=== PATIENT | female | born 1970 | race Caucasian/White ===

== ENCOUNTER 2016-11-19 15:50 | Emergency (ER) | payer MEDICAID ==
[~2016-11-19] VITALS: Ht 162.6 cm; Wt 80.0 kg
[~2016-11-19 15:50] MED LIST: ALPR-138 PO; AMBI5TAB PO; AMOX500T PO; DICL50 PO; DIFL150T PO; OXYC-360 PO; PRED10 PO
[2016-11-19 15:55] VITALS: BP 97/82; PULSE 146; RESP 20; TEMP 99.1; O2SAT 100
[2016-11-19] MEDS ORDERED: KETOROLAC TROMETHAMINE 30 MG/ML (IVP) VIAL IV PUSH ONE (16:00)
[2016-11-19] MEDS ORDERED: LORazepam 2 MG/ML VIAL IV PUSH ONE (16:00)
[2016-11-19] MEDS ORDERED: DICL50TA PO (16:03)
[2016-11-19] MEDS ORDERED: XANA1TAB2 PO (16:03)
[2016-11-19] MEDS ORDERED: PERC5TAB12 PO (16:03)
[2016-11-19] MEDS ORDERED: AMBI5TAB PO (16:03)
[2016-11-19 16:15] VITALS: BP 112/90; PULSE 100; RESP 20; O2SAT 100
[2016-11-19] MEDS ORDERED: SODIUM CHLOR 0.9% 1000 ML INJ 1,000 ML IV ONE (16:15)
[2016-11-19 16:23] LABS: BASOPHIL # 0.1 TH/MM3 (0-0.2); BASOPHIL % 0.4 % (0.0-2.0); EOSINOPHIL # 0.3 TH/MM3 (0-0.4); EOSINOPHIL % 1.4 % (0.0-4.0); HEMATOCRIT 39.5 % (35.0-46.0); LYMPH % 21.7 % (9.0-44.0); LYMPHOCYTE # 4.7 TH/MM3 (1.0-4.8); MEAN CELL VOLUME 90.7 FL (80.0-100.0); MEAN CORPUSCULAR HEMOGLOBIN 29.6 PG (27.0-34.0); MEAN CORPUSCULAR HGB CONC 32.7 % (32.0-36.0); MONO % 2.7 % (0.0-8.0); NEUT % 73.8 % (16.0-70.0); PLATELET COUNT 555 TH/MM3 (150-450); RED BLOOD COUNT 4.35 MIL/MM3 (4.00-5.30); RED CELL DISTRIBUTION WIDTH 13.6 % (11.6-17.2); WHITE BLOOD COUNT 21.7 TH/MM3 (4.0-11.0)
[2016-11-19 16:24] LABS: HEMO FLAGS AUTO DIFF
[2016-11-19 16:31] LABS: CHLORIDE 105 MEQ/L (98-107); POTASSIUM 3.7 MEQ/L (3.5-5.1); SODIUM (NA) 137 MEQ/L (136-145)
[2016-11-19 16:35] LABS: ANION GAP 12 MEQ/L (5-15); BLOOD UREA NITROGEN 11 MG/DL (7-18)
[2016-11-19 16:38] LABS: ALT (GPT) 48 U/L (10-53); AST (GOT) 26 U/L (15-37); GLOMERULAR FILTRATION RATE 54 ML/MIN (>89)
--- NOTE | 2016-11-19 16:38 | RADRPT ---
EXAM DATE/TIME: 11/19/2016 16:26 [facility] COMPARISON: No previous studies available for comparison. INDICATIONS : Sudden onset of chest pains MEDICAL HISTORY : None. SURGICAL HISTORY : None. ENCOUNTER: Initial ACUITY: 1 day PAIN SCORE: 8/10 LOCATION: Bilateral chest FINDINGS: A single view of the chest demonstrates the lungs to be symmetrically aerated without evidence of mas s, infiltrate or effusion. The cardiomediastinal contours are unremarkable. Osseous structures are intact. CONCLUSION: No acute disease. Avni Eldridge MD on November 19, 2016 at 16:36 Board Certified Radiologist. This report was verified electronically.
[2016-11-19 16:39] LABS: TOTAL BILIRUBIN ADULT 0.4 MG/DL (0.2-1.0)
[2016-11-19 16:41] LABS: ALKALINE PHOSPHATASE 175 U/L (45-117)
[2016-11-19 16:44] LABS: SCAN/DIFF AUTO DIFF CONFIRMED
[2016-11-19 16:59] LABS: BLOOD, URINE SMALL (NEG); GLUCOSE,URINE NEG (NEG); KETONE, URINE NEG (NEG); NITRITE,URINE NEG (NEG)
[2016-11-19] MEDS ORDERED: MORPHINE SULFATE 8 MG/ML INJ IV PUSH ONE (17:00)
[2016-11-19] MEDS ORDERED: ONDANSETRON HCL 4 MG/2 ML VIAL IV PUSH ONE (17:00)
--- NOTE | 2016-11-19 17:15 | PD ---
HPI Chief Complaint: Cardiac Complaint Time Seen by Provider: 15:59 Travel History International Travel<30 days: No Contact w/Intl Traveler<30days: No Traveled to known affect area: No History of Present Illness HPI This 45-year-old female was at home when she had an onset of sternal chest pain and palpitations. Pain started fairly abruptly. The pain is aggravated by breathing and by palpation. She has a history of anxiety and takes Xanax. She taken Xanax earlier today also takes Percocet she does smoke cigarettes. She says she been coughing the last couple of days. She is not aware of any fever. It has been a nonproductive cough. PFSH Past Medical History Anxiety: Yes Diminished Hearing: No Genitourinary: Yes (UTI) Kidney Stones: Yes Musculoskeletal: Yes (CHRONIC BACK PAIN) Immunizations Current: No Tetanus Vaccination: Unknown Influenza Vaccination: No ?: Not : 3 Para: 3 Tubal Ligation: Yes Past Surgical History Section: Yes Social History Alcohol Use: No Tobacco Use: Yes (1 PPD) Substance Use: No Allergies-Medications (Allergen,Severity, Reaction): Coded Allergies: No Known Allergies (Verified , 11/19/16) Reported Meds & Prescriptions Reported Meds & Active Scripts Active Reported Ambien (Zolpidem Tartrate) 5 Mg Tab 5 Mg PO HS PRN Diclofenac Potassium 50 Mg Tab 50 Mg PO BID Percocet (Oxycodone-Acetaminophen) 5-325 mg Tab 1 Tab PO Q4H PRN Xanax (Alprazolam) 1 Mg Tab 1 Mg PO Q6H PRN Review of Systems General / Constitutional: No: Fever, Chills Eyes: No: Diploplia, Blurred Vision HENT: No: Headaches, Vertigo Cardiovascular: Positive: Chest Pain or Discomfort, Palpitations Respiratory: Positive: Cough, Shortness of Breath Gastrointestinal: No: Nausea, Vomiting Genitourinary: No: Frequency Skin: No Rash, No Itching Neurologic: No: Weakness Psychiatric: Positive: Anxiety Endocrine: No: Heat Intolerance Hematologic/Lymphatic: No: Easy Bruising Physical Exam Narrative GENERAL: Well-developed female. She appears extremely anxious on arrival. He is hyperventilating. Her heart rate varies from 150 to 180 SKIN: Focused skin assessment warm/dry. HEAD: Atraumatic. Normocephalic. EYES: Pupils equal and round. No scleral icterus. No injection or drainage. ENT: No nasal bleeding or discharge. Mucous membranes pink and moist. NECK: Trachea midline. No JVD. CARDIOVASCULAR: Rapid Regular rate and rhythm. No murmur appreciated. She is tender over the sternum RESPIRATORY: No accessory muscle use. Clear to auscultation. Breath sounds equal bilaterally. GASTROINTESTINAL: Abdomen soft, non-tender, nondistended. Hepatic and splenic margins not palpable. MUSCULOSKELETAL: No obvious deformities. No clubbing. No cyanosis. No edema. NEUROLOGICAL: Awake and alert. No obvious cranial nerve deficits. Motor grossly within normal limits. Normal speech. PSYCHIATRIC: Appropriate mood and affect; insight and judgment normal. Data Data Last Documented VS Vital Signs Date Time Temp Pulse Resp B/P Pulse Ox O2 Delivery O2 Flow Rate FiO2 11/19/16 17:18 84 18 105/58 100 Room Air 11/19/16 15:55 99.1 Orders Electrocardiogram (11/19/16 15:59) Complete Blood Count With Diff (11/19/16 15:59) Comprehensive Metabolic Panel (11/19/16 15:59) Troponin I (11/19/16 15:59) Urinalysis - C+S If Indicated (11/19/16 15:59) Magnesium (Mg) (11/19/16 15:59) Lorazepam Inj (Ativan Inj) (11/19/16 16:00) Ketorolac Inj (Toradol Inj) (11/19/16 16:00) Sodium Chlor 0.9% 1000 Ml Inj (Ns 1000 M (11/19/16 16:15) D-Dimer (11/19/16 16:14) Chest, Single Ap (11/19/16 16:14) Ondansetron Inj (Zofran Inj) (11/19/16 17:00) Morphine Inj (Morphine Inj) (11/19/16 17:00) Labs Laboratory Tests Test 11/19/16 11/19/16 16:00 16:45 White Blood Count 21.7 TH/MM3 Red Blood Count 4.35 MIL/MM3 Hemoglobin 12.9 GM/DL Hematocrit 39.5 % Mean Corpuscular Volume 90.7 FL Mean Corpuscular Hemoglobin 29.6 PG Mean Corpuscular Hemoglobin 32.7 % Concent Red Cell Distribution Width 13.6 % Platelet Count 555 TH/MM3 Mean Platelet Volume 7.9 FL Neutrophils (%) (Auto) 73.8 % Lymphocytes (%) (Auto) 21.7 % Monocytes (%) (Auto) 2.7 % Eosinophils (%) (Auto) 1.4 % Basophils (%) (Auto) 0.4 % Neutrophils # (Auto) 16.0 TH/MM3 Lymphocytes # (Auto) 4.7 TH/MM3 Monocytes # (Auto) 0.6 TH/MM3 Eosinophils # (Auto) 0.3 TH/MM3 Basophils # (Auto) 0.1 TH/MM3 CBC Comment AUTO DIFF Differential Comment AUTO DIFF CONFIRMED D-Dimer Quantitative (PE/DVT) 0.36 MG/L FEU Sodium Level 137 MEQ/L Potassium Level 3.7 MEQ/L Chloride Level 105 MEQ/L Carbon Dioxide Level 20.0 MEQ/L Anion Gap 12 MEQ/L Blood Urea Nitrogen 11 MG/DL Creatinine 1.10 MG/DL Estimat Glomerular Filtration 54 ML/MIN Rate Random Glucose 102 MG/DL Calcium Level 9.9 MG/DL Magnesium Level 2.0 MG/DL Total Bilirubin 0.4 MG/DL Aspartate Amino Transf 26 U/L (AST/SGOT) Alanine Aminotransferase 48 U/L (ALT/SGPT) Alkaline Phosphatase 175 U/L Troponin I LESS THAN 0.02 NG/ML Total Protein 8.4 GM/DL Albumin 4.2 GM/DL Urine pH 6.0 Urine Protein NEG mg/dL Urine Glucose (UA) NEG mg/dL Urine Ketones NEG mg/dL Urine Occult Blood SMALL Urine Nitrite NEG Urine Bilirubin NEG Urine Leukocyte Esterase NEG MDM Medical Decision Making Medical Screen Exam Complete: Yes Emergency Medical Condition: Yes Medical Record Reviewed: Yes Differential Diagnosis Differential includes SVT, coronary syndrome, panic disorder, Narrative Course Chest x-rays read as negative. Her white count is elevated at 21.7 and a d- dimer is normal at 0.3 and troponin is normal with Ativan and her heart rate is come down from gradually from 1 50-100. She remained quite tender sternum. Urine is negative for infection. I suspect the elevation of the white count is related to stress, possibly bronchitis. Presentation is not suspicious for coronary artery disease she is quite tender over the chest Diagnosis Primary Impression: Chest pain, atypical Additional Impression: Bronchitis Scripts Amoxicillin 500 Mg [id number] Mg PO TID #30 TAB Ref 0 Prov:Sarwat Chambers MD 11/19/16 Disposition: 01 DISCHARGE HOME Condition: Stable Sarwat Chambers MD Nov 19, 2016 17:15
[2016-11-19 17:18] VITALS: BP 105/58; PULSE 84; RESP 18; O2SAT 100
[2016-11-19 17:24] LABS: METHOD OF COLLECTION CLEAN CATCH; URINE COLOR YELLOW (YELLW/STRAW)
[2016-11-19 17:25] LABS: BACTERIA, URINE MOD /hpf; COMMENT (UR) CULTURE INDICATED; COMMENT2 (UR) MUCOUS PRESENT; CULTURE IF INDICATED CULTURE INDICATED; RBC, URINE 0-3 /hpf (0-3); SQUAMOUS EPITHELIAL CELL URINE 0-5 /hpf (0-5)
[2016-11-19] MEDS ORDERED: AMOX500T PO (17:26)
[2016-11-19] MEDS ORDERED: AMOXICILLIN (TRIHYDRATE) 500 MG CAP PO ONE (17:30)
--- NOTE | 2016-11-20 16:49 | EKG ---
Date Performed: 11/19/2016 Time Performed: 16:31:55 PTAGE: 45 years EKG: Sinus rhythm POSSIBLE LEFT ATRIAL ENLARGEMENT BORDERLINE ECG PREVIOUS TRACING : 10/24/2012 17.06 Since previous tracing, no significant change noted DOCTOR: Darrick Sullivan Interpretating Date/Time 11/20/2016 16:46:23
== END 2016-11-19 17:40 | disposition home or self-care (01) ==
LOC: PHED 15:50
DX: R07.89 Other chest pain (principal); J40 Bronchitis, not specified as acute or chronic; D72.829 Elevated white blood cell count, unspecified; R00.0 Tachycardia, unspecified; R00.2 Palpitations; R05 Cough; R94.31 Abnormal electrocardiogram [ECG] [EKG]; F17.200 Nicotine dependence, unspecified, uncomplicated; Z86.59 Personal history of other mental and behavioral disorders; Z87.448 Personal history of other diseases of urinary system; Z87.39 Personal history of other diseases of the musculoskeletal system and connective tissue
CPT/HCPCS: 71010; 80053; 81001; 83735; 84484; 85025; 85379; 87086; 93005; 96374; 96375; 99285; J1885; J2060; J2270; J2405; J7030

== ENCOUNTER 2017-06-02 15:48 | Emergency (ER) | payer MEDICAID ==
[~2017-06-02] VITALS: Ht 162.6 cm; Wt 80.6 kg
[~2017-06-02 15:48] MED LIST changes: -ALPR-138 PO; -DICL50 PO; +DICL50TA PO; -DIFL150T PO; -OXYC-360 PO; +PERC5TAB12 PO; -PRED10 PO; +XANA1TAB2 PO
[2017-06-02] MEDS ORDERED: ASPIRIN 81 MG CHEW TAB PO ONE (16:00)
[2017-06-02] MEDS ORDERED: SODIUM CHLORIDE 0.9% FLUSH 10 ML FLUSH IVF PRN (16:00)
[2017-06-02 16:06] VITALS: BP 132/83; PULSE 122; RESP 18; TEMP 98.3; O2SAT 96
[2017-06-02] MEDS ORDERED: ALPR.5 PO (16:11)
[2017-06-02 16:19] LABS: AUTOMATED NEUTROPHIL # 6.1 TH/MM3 (1.8-7.7); BASOPHIL # 0.4 TH/MM3 (0-0.2); BASOPHIL % 3.2 % (0.0-2.0); EOSINOPHIL # 0.4 TH/MM3 (0-0.4); EOSINOPHIL % 3.6 % (0.0-4.0); HEMATOCRIT 37.9 % (35.0-46.0); HEMOGLOBIN 12.3 GM/DL (11.6-15.3); LYMPHOCYTE # 3.8 TH/MM3 (1.0-4.8); MEAN CELL VOLUME 89.7 FL (80.0-100.0); MEAN CORPUSCULAR HEMOGLOBIN 29.2 PG (27.0-34.0); MEAN CORPUSCULAR HGB CONC 32.5 % (32.0-36.0); MONO % 4.7 % (0.0-8.0); MONOCYTE # 0.5 TH/MM3 (0-0.9); NEUT % 54.5 % (16.0-70.0); PLATELET COUNT 408 TH/MM3 (150-450); RED BLOOD COUNT 4.22 MIL/MM3 (4.00-5.30); RED CELL DISTRIBUTION WIDTH 12.9 % (11.6-17.2); WHITE BLOOD COUNT 11.2 TH/MM3 (4.0-11.0)
[2017-06-02 16:21] VITALS: BP 115/82; PULSE 96; RESP 18; O2SAT 98
[2017-06-02 16:27] LABS: CHLORIDE 107 MEQ/L (98-107); SODIUM (NA) 139 MEQ/L (136-145)
[2017-06-02 16:29] LABS: CALCIUM 8.7 MG/DL (8.5-10.1)
[2017-06-02 16:30] LABS: BICARBONATE 25.5 MEQ/L (21.0-32.0); BLOOD UREA NITROGEN 6 MG/DL (7-18); GLUCOSE,RANDOM 102 MG/DL (74-106); MAGNESIUM 2.3 MG/DL (1.5-2.5)
--- NOTE | 2017-06-02 16:30 | RADRPT ---
EXAM DATE/TIME: 06/02/2017 16:00 [facility] COMPARISON: CHEST SINGLE AP, November 19, 2016, 16:26. INDICATIONS : Chest pain. MEDICAL HISTORY : None. SURGICAL HISTORY : None. ENCOUNTER: Initial ACUITY: 1 week PAIN SCORE: 10/10 LOCATION: Bilateral FINDINGS: PA and lateral views of the chest demonstrate a normal-sized cardiac silhouette. There is no effusion , consolidation, or pneumothorax. The bones and soft tissues demonstrate no acute abnormality. CONCLUSION: No acute cardiopulmonary abnormality is identified. Yoni Townsend MD on June 02, 2017 at 16:27 Board Certified Radiologist. This report was verified electronically.
[2017-06-02 16:33] LABS: CREATININE 0.79 MG/DL (0.50-1.00); GLOMERULAR FILTRATION RATE 79 ML/MIN (>89)
[2017-06-02 16:35] VITALS: BP 115/82; PULSE 90; RESP 20; O2SAT 98
[2017-06-02 16:38] LABS: TROPONIN I LESS THAN 0.02 NG/ML (0.02-0.05)
[2017-06-02] MEDS ORDERED: NABU1TAB37 PO (17:20)
--- NOTE | 2017-06-02 17:20 | PD ---
HPI . Chest pain Chief Complaint: Chest Pain Time Seen by Provider: 15:53 Travel History International Travel<30 days: No Contact w/Intl Traveler<30days: No Traveled to known affect area: No History of Present Illness HPI Patient presents with a chief complaint of chest pain. Onset was a week ago. The pain is in the center of her chest. She reports nausea. Otherwise, she has no associated symptoms. She has not tried any medication for it at home. She rates her pain 10/10. PFSH Past Medical History Anxiety: Yes Diminished Hearing: No Genitourinary: Yes (UTI) Kidney Stones: Yes Musculoskeletal: Yes (CHRONIC BACK PAIN) Immunizations Current: No Influenza Vaccination: No ?: Not LMP: 05/2017 : 3 Para: 3 Tubal Ligation: Yes Past Surgical History Section: Yes Social History Alcohol Use: No Tobacco Use: Yes (1 PPD) Substance Use: No Allergies-Medications (Allergen,Severity, Reaction): Coded Allergies: No Known Allergies (Verified Adverse Reaction, Unknown, 06/02/17) Reported Meds & Prescriptions Reported Meds & Active Scripts Active Reported Xanax (Alprazolam) 0.5 Mg Tab 0.5 Mg PO Q8H PRN Ambien (Zolpidem Tartrate) 5 Mg Tab 5 Mg PO HS PRN Diclofenac Potassium 50 Mg Tab 50 Mg PO BID Percocet (Oxycodone-Acetaminophen) 5-325 mg Tab 1 Tab PO Q4H PRN Review of Systems Except as stated in HPI: all other systems reviewed are Neg General / Constitutional: No: Fever, Chills Cardiovascular: Positive: Chest Pain or Discomfort Respiratory: No: Cough Gastrointestinal: Positive: Nausea, No: Vomiting, Diarrhea Physical Exam Narrative GENERAL: Awake and alert and in no acute distress. SKIN: warm/dry. Normal color and turgor. HEAD: Normocephalic. Atraumatic. EYES: Pupils equal and round. No scleral icterus. No injection or drainage. ENT: No nasal bleeding or discharge. Mucous membranes pink and moist. NECK: Trachea midline. Full range of motion without pain.. CARDIOVASCULAR: Regular rate and rhythm. Heart sounds normal. RESPIRATORY: No accessory muscle use. Clear to auscultation. Breath sounds equal bilaterally. Positive chest wall tenderness. GASTROINTESTINAL: Abdomen soft. Nontender. Bowel sounds present. Nondistended. MUSCULOSKELETAL: No obvious deformities. NEUROLOGICAL: Awake and alert. No obvious cranial nerve deficits. Motor grossly within normal limits. Normal speech. PSYCHIATRIC: Appropriate mood and affect; insight and judgment normal. Data Data Last Documented VS Vital Signs Date Time Temp Pulse Resp B/P (MAP) Pulse Ox O2 Delivery O2 Flow Rate FiO2 06/02/17 16:35 90 98 Room Air 06/02/17 16:35 20 115/82 (93) 06/02/17 16:06 98.3 Orders Orders Electrocardiogram (06/02/17 15:54) Basic Metabolic Panel (Bmp) (06/02/17 15:54) Complete Blood Count With Diff (06/02/17 15:54) Magnesium (Mg) (06/02/17 15:54) Prothrombin Time / Inr (Pt) (06/02/17 15:54) Act Partial Throm Time (Ptt) (06/02/17 15:54) Troponin I (06/02/17 15:54) Ecg Monitoring (06/02/17 15:54) Iv Access Insert/Monitor (06/02/17 15:54) Oximetry (06/02/17 15:54) Aspirin Chew (Aspirin Chew) (06/02/17 16:00) Sodium Chloride 0.9% Flush (Ns Flush) (06/02/17 16:00) Chest, Pa & Lat (06/02/17 15:54) Labs Laboratory Tests Test 06/02/17 15:55 White Blood Count 11.2 TH/MM3 Red Blood Count 4.22 MIL/MM3 Hemoglobin 12.3 GM/DL Hematocrit 37.9 % Mean Corpuscular Volume 89.7 FL Mean Corpuscular Hemoglobin 29.2 PG Mean Corpuscular Hemoglobin Concent 32.5 % Red Cell Distribution Width 12.9 % Platelet Count 408 TH/MM3 Mean Platelet Volume 8.0 FL Neutrophils (%) (Auto) 54.5 % Lymphocytes (%) (Auto) 34.0 % Monocytes (%) (Auto) 4.7 % Eosinophils (%) (Auto) 3.6 % Basophils (%) (Auto) 3.2 % Neutrophils # (Auto) 6.1 TH/MM3 Lymphocytes # (Auto) 3.8 TH/MM3 Monocytes # (Auto) 0.5 TH/MM3 Eosinophils # (Auto) 0.4 TH/MM3 Basophils # (Auto) 0.4 TH/MM3 CBC Comment DIFF FINAL Differential Comment Prothrombin Time 10.0 SEC Prothromb Time International Ratio 1.0 RATIO Activated Partial Thromboplast Time 25.9 SEC Blood Urea Nitrogen 6 MG/DL Creatinine 0.79 MG/DL Random Glucose 102 MG/DL Calcium Level 8.7 MG/DL Magnesium Level 2.3 MG/DL Sodium Level 139 MEQ/L Potassium Level 3.4 MEQ/L Chloride Level 107 MEQ/L Carbon Dioxide Level 25.5 MEQ/L Anion Gap 7 MEQ/L Estimat Glomerular Filtration Rate 79 ML/MIN Troponin I LESS THAN 0.02 NG/ML MDM Medical Decision Making Medical Screen Exam Complete: Yes Emergency Medical Condition: Yes Interpretation(s) EKG shows a normal sinus rhythm with no acute ischemic changes. Differential Diagnosis Differential diagnosis of chest pain includes but is not limited to musculoskeletal pain, pulmonary embolism, acute coronary syndrome, pneumonia, pleurisy Narrative Course This patient presents with a one-week history of chest pain. She was given an aspirin. Chest pain workup was done. CBC & BMP Diagram 06/02/17 15:55 Calcium Level 8.7, Magnesium Level 2.3 Troponin normal Last Impressions Chest X-Ray 06/02/17 [id number] Signed Impressions: Service Date/Time: Sunday, June 02, 2017 16:00 - CONCLUSION: No acute cardiopulmonary abnormality is identified. Yoni Townsend MD The chest x-ray was independently viewed by me. The fact that this patient has had chest pain for a week the fact that her workup here is unremarkable and so she has an extremely low likelihood of ACS. She will be discharged home. Diagnosis Primary Impression: Chest pain, atypical Patient Instructions: Chest Pain (DC), General Instructions Med/Other Pt SpecificInfo: Prescription(s) given Scripts Nabumetone (Nabumetone) 500 Mg Tab 500 MG PO BID for Pain-Inflammation, #60 TAB 0 Refills Prov: Corry Leiva MD 06/02/17 Disposition: 01 DISCHARGE HOME Condition: Stable Corry Leiva MD Jun 02, 2017 17:20
--- NOTE | 2017-06-02 21:13 | EKG ---
Date Performed: 06/02/2017 Time Performed: 15:54:12 PTAGE: 46 years EKG: SINUS TACHYCARDIA ABNORMAL RHYTHM ECG PREVIOUS TRACING : 11/19/2016 16.31 No significant change from previous tracing noted. DOCTOR: Cornelius Manriquez Interpretating Date/Time 06/02/2017 21:12:05
[2017-06-03] MEDS ORDERED: XANA1TAB2 PO (10:10)
[2017-06-03] MEDS ORDERED: DOXE75CA2 PO (10:11)
[2017-06-03] MEDS ORDERED: BUSP15TA PO (10:11)
[2017-06-03] MEDS ORDERED: ZOLP10TA3 PO (10:12)
[2017-06-03] MEDS ORDERED: DICL50TA PO (10:13)
== END 2017-06-02 17:33 | disposition home or self-care (01) ==
LOC: PHED 15:48
DX: R07.89 Other chest pain (principal); R94.31 Abnormal electrocardiogram [ECG] [EKG]; F41.9 Anxiety disorder, unspecified; F17.210 Nicotine dependence, cigarettes, uncomplicated; Z79.899 Other long term (current) drug therapy
CPT/HCPCS: 71046; 80048; 83735; 84484; 85025; 85610; 85730; 93005

== ENCOUNTER 2017-06-03 01:40 | Inpatient (IN) | payer MEDICAID ==
[2017-06-03] VITALS (8 sets, daily range): BP systolic 94–152; BP diastolic 50–75; PULSE 72–88; RESP 16–20; TEMP 96.4–98.4; O2SAT 96–100
[~2017-06-03] VITALS: Ht 162.6 cm; Wt 77.2 kg
[~2017-06-03 01:40] MED LIST changes: +ALPR.5 PO; -AMOX500T PO; +NABU1TAB37 PO; -XANA1TAB2 PO
[2017-06-03] MEDS ORDERED: ONDANSETRON HCL 4 MG/2 ML VIAL IV PUSH ONE (03:00)
[2017-06-03] MEDS ORDERED: MORPHINE SULFATE 2 MG/ML INJ IV PUSH ONE (03:00)
[2017-06-03] MEDS ORDERED: LORazepam 2 MG/ML VIAL IV PUSH ONE (03:00)
[2017-06-03 03:15] LABS: AUTOMATED NEUTROPHIL # 6.3 TH/MM3 (1.8-7.7); BASOPHIL # 0.2 TH/MM3 (0-0.2); BASOPHIL % 1.4 % (0.0-2.0); EOSINOPHIL # 0.4 TH/MM3 (0-0.4); EOSINOPHIL % 3.7 % (0.0-4.0); HEMATOCRIT 35.7 % (35.0-46.0); HEMOGLOBIN 11.9 GM/DL (11.6-15.3); LYMPH % 30.6 % (9.0-44.0); LYMPHOCYTE # 3.4 TH/MM3 (1.0-4.8); MEAN CELL VOLUME 89.4 FL (80.0-100.0); MEAN CORPUSCULAR HEMOGLOBIN 29.6 PG (27.0-34.0); MEAN CORPUSCULAR HGB CONC 33.2 % (32.0-36.0); MEAN PLATELET VOLUME 7.9 FL (7.0-11.0); MONO % 6.4 % (0.0-8.0); MONOCYTE # 0.7 TH/MM3 (0-0.9); NEUT % 57.9 % (16.0-70.0); PLATELET COUNT 367 TH/MM3 (150-450); RED CELL DISTRIBUTION WIDTH 12.9 % (11.6-17.2)
[2017-06-03 03:17] LABS: ALBUMIN 3.5 GM/DL (3.4-5.0); ALKALINE PHOSPHATASE 118 U/L (45-117); ALT (GPT) 35 U/L (10-53); AST (GOT) 35 U/L (15-37); BLOOD UREA NITROGEN 7 MG/DL (7-18); CALCIUM 8.5 MG/DL (8.5-10.1); CHLORIDE 106 MEQ/L (98-107); CREATININE 0.69 MG/DL (0.50-1.00); GLOMERULAR FILTRATION RATE 92 ML/MIN (>89); GLUCOSE,RANDOM 90 MG/DL (74-106); MAGNESIUM 2.3 MG/DL (1.5-2.5); SODIUM (NA) 138 MEQ/L (136-145); TOTAL BILIRUBIN ADULT 0.1 MG/DL (0.2-1.0); TOTAL PROTEIN 7.3 GM/DL (6.4-8.2)
[2017-06-03 03:27] LABS: TROPONIN I LESS THAN 0.02 NG/ML (0.02-0.05)
[2017-06-03] MEDS ORDERED: NITROGLYCERIN 0.4 MG SL 25 TABS/BTL SL ONE (04:30)
[2017-06-03] MEDS ORDERED: IOHEXOL 350 MG/ML 10 ML VIAL (for RAD DIAG) IVCONTRAST ONE (04:40)
--- NOTE | 2017-06-03 04:55 | RADRPT ---
EXAM DATE/TIME: 06/03/2017 04:28 [facility] COMPARISON: No previous studies available for comparison. INDICATIONS : Bilateral upper quadrant pain. IV CONTRAST: 100 cc Omnipaque 350 (iohexol) IV ORAL CONTRAST: No oral contrast ingested. RADIATION DOSE: 15.63 CTDIvol (mGy) MEDICAL HISTORY : Renal calculi. SURGICAL HISTORY : Tubal ligation. section. ENCOUNTER: Initial ACUITY: 2 days PAIN SCALE: 10/10 LOCATION: Bilateral upper quadrant TECHNIQUE: Volumetric scanning of the abdomen and pelvis was performed. Using automated exposure control and ad justment of the mA and/or kV according to patient size, radiation dose was kept as low as reasonably achievable to obtain optimal diagnostic quality images. DICOM format image data is available electro nically for review and comparison. FINDINGS: LOWER LUNGS: The visualized lower lungs are clear. LIVER: Homogeneous density without lesion. There is no dilation of the biliary tree. No perceptible gallsto lm. Gallbladder margins are mildly indistinct and there is mild edema/pericholecystic fluid noted. N othing organized or drainable. SPLEEN: Normal size without lesion. PANCREAS: Within normal limits. KIDNEYS: Normal in size and shape. 3.8 cm simple left lower pole cyst. There is no solid mass, stone or hydro nephrosis. ADRENAL GLANDS: Within normal limits. VASCULAR: There is no aortic aneurysm. BOWEL/MESENTERY: The stomach, small bowel, and colon demonstrate no acute abnormality. There is no free intraperitone al air or fluid. Normal appendix. ABDOMINAL WALL: Within normal limits. RETROPERITONEUM: There is no lymphadenopathy. BLADDER: No wall thickening or mass. REPRODUCTIVE: Within normal limits. INGUINAL: There is no lymphadenopathy or hernia. MUSCULOSKELETAL: Within normal limits for patient age. CONCLUSION: 1. Early/mild acute cholecystitis suspected. No definite stones. No evidence of biliary obstruction. 2. Benign cyst of the left kidney. Yoni Mac MD on June 03, 2017 at 4:52 Board Certified Radiologist. This report was verified electronically.
--- NOTE | 2017-06-03 05:04 | PD ---
HPI Chief Complaint: Chest Pain Time Seen by Provider: 02:10 Travel History International Travel<30 days: No Contact w/Intl Traveler<30days: No Traveled to known affect area: No History of Present Illness HPI 46-year-old female presents to the emergency department by private transportation for complaint of chest pain. Patient also complains of upper abdominal pain. Patient had nausea. Patient denies any referred neck jaw shoulder arm pain. Patient does complain of referred back and subscapular pain. Patient states she was seen earlier in the day on Sunday for same complaint but due to persistent pain decided to return to the emergency department. Patient is very concerned about her gallbladder. No prior history of gallbladder disease biliary colic or cholelithiasis. Patient has family history of father passing away from pancreatic cancer. Both mother and father with cardiac disease. Patient does smoke cigarettes and has history of high cholesterol. Patient rates pain as moderate to severe. Patient has chronic back pain and is prescribed Percocet therefore she took 2 Percocet prior to coming to the emergency department for her pain with minimal relief. Pain 8/5 in intensity. PFSH Past Medical History Narrative Medical Anemia anxiety depression dyslipidemia tobaccoism UTI kidney stone; nursing notes reviewed Anemia: Yes Anxiety: Yes Depression: Yes High Cholesterol: Yes Diminished Hearing: No Genitourinary: Yes (UTI) Headaches: Yes Herniated Disk: Yes Kidney Stones: Yes Musculoskeletal: Yes (CHRONIC BACK PAIN) Immunizations Current: No Tetanus Vaccination: > 5 Years Influenza Vaccination: No ?: Not : 3 Para: 3 Tubal Ligation: Yes Past Surgical History Section: Yes (X1) Social History Alcohol Use: No Tobacco Use: Yes (/ PPD) Substance Use: No Allergies-Medications (Allergen,Severity, Reaction): Coded Allergies: No Known Allergies (Verified Allergy, Unknown, 06/03/17) Reported Meds & Prescriptions Reported Meds & Active Scripts Active Nabumetone 500 Mg Tab 500 Mg PO BID Reported Xanax (Alprazolam) 0.5 Mg Tab 0.5 Mg PO Q8H PRN Ambien (Zolpidem Tartrate) 5 Mg Tab 5 Mg PO HS PRN Diclofenac Potassium 50 Mg Tab 50 Mg PO BID Percocet (Oxycodone-Acetaminophen) 5-325 mg Tab 1 Tab PO Q4H PRN Review of Systems Except as stated in HPI: all other systems reviewed are Neg General / Constitutional: No: Fever, Chills HENT: No: Congestion Cardiovascular: Positive: Chest Pain or Discomfort Respiratory: No: Shortness of Breath Gastrointestinal: Positive: Nausea, Abdominal Pain, No: Vomiting Genitourinary: No: Flank Pain Musculoskeletal: No: Myalgias, Arthralgias Skin: No Rash Neurologic: No: Weakness Hematologic/Lymphatic: No: Lymph Node Enlargement Physical Exam Narrative GENERAL: Well-developed well-nourished female no acute distress or respiratory distress SKIN: Warm and dry. HEAD: Normocephalic. EYES: No scleral icterus. No injection or drainage. NECK: Supple, trachea midline. No JVD or lymphadenopathy. CARDIOVASCULAR: Regular rate and rhythm without murmurs, gallops, or rubs. RESPIRATORY: Breath sounds equal bilaterally. No accessory muscle use. GASTROINTESTINAL: Abdomen soft, bilateral upper quadrant and epigastric tenderness to palpation, nondistended. MUSCULOSKELETAL: No cyanosis, or edema. BACK: Nontender without obvious deformity. No CVA tenderness. Data Data Last Documented VS Vital Signs Date Time Temp Pulse Resp B/P (MAP) Pulse Ox O2 Delivery O2 Flow Rate FiO2 06/03/17 03:46 20 98 06/03/17 03:22 79 106/63 (77) Room Air Orders Orders Lorazepam Inj (Ativan Inj) (06/03/17 03:00) Ondansetron Inj (Zofran Inj) (06/03/17 03:00) Morphine Inj (Morphine Inj) (06/03/17 03:00) Comprehensive Metabolic Panel (06/03/17 02:15) Lipase (06/03/17 02:15) Magnesium (Mg) (06/03/17 02:15) B-Type Natriuretic Peptide (06/03/17 02:15) Complete Blood Count With Diff (06/03/17 02:15) Creatine Kinase (Cpk) (06/03/17 02:15) Troponin I (06/03/17 02:15) Ct Abd/Pel W Iv Contrast(Rout) (06/03/17 ) Nitroglycerin Sl (Nitrostat Sl) (06/03/17 04:30) Chest, Single Ap (06/03/17 ) Iohexol 350 Inj (Omnipaque 350 Inj) (06/03/17 04:40) Hydromorphone Pf Inj (Dilaudid Pf Inj) (06/03/17 05:15) Piperacil-Tazo 4.5 Gm Premix (Zosyn 4.5 (06/03/17 05:15) Sodium Chlor 0.9% 1000 Ml Inj (Ns 1000 M (06/03/17 05:15) Admit Order (Ed Use Only) (06/03/17 ) Manager Of Organizational Development / Telemetry MEHRDAD.Q8H (06/03/17 05:17) Activity Oob With Assistance (06/03/17 05:17) Notify Dr: Other (06/03/17 05:17) Piperacil-Tazo 4.5 Gm Premix (Zosyn 4.5 (06/03/17 12:00) Admit To Inpatient (06/03/17 ) Vital Signs (Adult) Q4H (06/03/17 05:16) Activity Oob Ad Princess (06/03/17 05:16) Intake + Output MEHRDAD.QSHIFT (06/03/17 05:16) Diet Clear Liquid (06/03/17 Breakfast) Sodium Chlor 0.9% 1000 Ml Inj (Ns 1000 M (06/03/17 05:16) Sodium Chloride 0.9% Flush (Ns Flush) (06/03/17 05:30) Sodium Chloride 0.9% Flush (Ns Flush) (06/03/17 09:00) Ondansetron Inj (Zofran Inj) (06/03/17 05:30) Comprehensive Metabolic Panel (06/04/17 06:00) Complete Blood Count With Diff (06/04/17 06:00) Scd Bilateral/Knee High MEHRDAD.BID (06/03/17 05:16) Yves Bilateral/Knee High MEHRDAD.QSHIFT (06/03/17 05:18) Acetaminophen (Tylenol) (06/03/17 05:30) Acetamin-Hydrocod 325-5 Mg ([place]ffield 5-325 (06/03/17 05:30) Morphine Inj (Morphine Inj) (06/03/17 05:30) Docusate Sodium-Senna (Federica-Colace) (06/03/17 09:00) Magnesium Hydroxide Liq (Milk Of Magnesi (06/03/17 05:30) Sennosides (Senokot) (06/03/17 05:30) Bisacodyl Supp (Dulcolax Supp) (06/03/17 05:30) Lactulose Liq (Lactulose Liq) (06/03/17 05:30) Inpatient Certification (06/03/17 ) Alprazolam (Xanax) (06/03/17 05:30) Zolpidem (Ambien) (06/03/17 05:30) Labs Laboratory Tests Test 06/03/17 02:15 White Blood Count 11.0 TH/MM3 Red Blood Count 4.00 MIL/MM3 Hemoglobin 11.9 GM/DL Hematocrit 35.7 % Mean Corpuscular Volume 89.4 FL Mean Corpuscular Hemoglobin 29.6 PG Mean Corpuscular Hemoglobin Concent 33.2 % Red Cell Distribution Width 12.9 % Platelet Count 367 TH/MM3 Mean Platelet Volume 7.9 FL Neutrophils (%) (Auto) 57.9 % Lymphocytes (%) (Auto) 30.6 % Monocytes (%) (Auto) 6.4 % Eosinophils (%) (Auto) 3.7 % Basophils (%) (Auto) 1.4 % Neutrophils # (Auto) 6.3 TH/MM3 Lymphocytes # (Auto) 3.4 TH/MM3 Monocytes # (Auto) 0.7 TH/MM3 Eosinophils # (Auto) 0.4 TH/MM3 Basophils # (Auto) 0.2 TH/MM3 CBC Comment DIFF FINAL Differential Comment Blood Urea Nitrogen 7 MG/DL Creatinine 0.69 MG/DL Random Glucose 90 MG/DL Total Protein 7.3 GM/DL Albumin 3.5 GM/DL Calcium Level 8.5 MG/DL Magnesium Level 2.3 MG/DL Alkaline Phosphatase 118 U/L Aspartate Amino Transf (AST/SGOT) 35 U/L Alanine Aminotransferase (ALT/SGPT) 35 U/L Total Bilirubin 0.1 MG/DL Sodium Level 138 MEQ/L Potassium Level 3.6 MEQ/L Chloride Level 106 MEQ/L Carbon Dioxide Level 24.0 MEQ/L Anion Gap 8 MEQ/L Estimat Glomerular Filtration Rate 92 ML/MIN Total Creatine Kinase 79 U/L Troponin I LESS THAN 0.02 NG/ML B-Type Natriuretic Peptide 20 PG/ML Lipase 118 U/L MDM Medical Decision Making Medical Screen Exam Complete: Yes Emergency Medical Condition: Yes Medical Record Reviewed: Yes Interpretation(s) EKG: Normal sinus rhythm rate [address] elevation injury pattern or ectopy noted Chest x-ray no infiltrate or some diaphragmatic free air CBC & BMP Diagram 06/03/17 02:15 Total Protein 7.3, Albumin 3.5, Calcium Level 8.5, Magnesium Level 2.3, Alkaline Phosphatase 118 H, Aspartate Amino Transf (AST/SGOT) 35, Alanine Aminotransferase (ALT/SGPT) 35, Total Bilirubin 0.1 L Vital Signs Date Time Temp Pulse Resp B/P (MAP) Pulse Ox O2 Delivery O2 Flow Rate FiO2 06/03/17 03:46 20 98 06/03/17 03:22 79 16 106/63 (77) 98 Room Air Differential Diagnosis Chest pain, abdominal pain, ACS, TX, biliary colic, gastritis, peptic ulcer disease, pancreatitis, atypical renal colic Narrative Course IV access obtained specimens collected and sent for resulting patient placed on cardiac cath lab manager with continuous pulse oximetry Patient administered Zofran and morphine sulfate Patient complaining of anxiety given Ativan 0.5 mg IV EKG shows no acute injury pattern CBC is automated differential within normal limits complete metabolic panel values are within normal range troponin I and CK values are within normal limits CT abdomen and pelvis ordered to evaluate further for possible gallbladder related pain CT abdomen and pelvis per reading radiologist consistent with early cholecystitis therefore patient administered Zosyn 4.5 gm IV piggyback and Dilaudid 1 mg iv with plan to admit to medicine Physician Communication Physician Communication call placed to [facility] service Diagnosis Primary Impression: Abdominal pain Additional Impression: Cholecystitis Aditi Campbell MD Jun 03, 2017 05:04
[2017-06-03] MEDS ORDERED: PIPERACIL-TAZO 4.5 GM PREMIX 100 ML IV ONE (05:15)
[2017-06-03] MEDS ORDERED: SODIUM CHLOR 0.9% 1000 ML INJ 1,000 ML IV ONE (05:15)
[2017-06-03] MEDS ORDERED: HYDROmorphone HCL PF 2 MG/ML VIAL IV PUSH ONE (05:15)
[2017-06-03] MEDS: SODIUM CHLOR 0.9% 1000 ML INJ 1,000 ML IV SCH ×3 (05:16→17:47)
[2017-06-03] MEDS ORDERED: ONDANSETRON HCL 4 MG/2 ML VIAL IVP PRN (05:30)
[2017-06-03] MEDS ORDERED: LACTULOSE SYRUP 20 GM/30 ML CUP PO PRN (05:30)
[2017-06-03] MEDS ORDERED: BISACODYL 10 MG SUPP RECTAL PRN (05:30)
[2017-06-03] MEDS ORDERED: SENNOSIDES 8.6 MG TAB PO PRN (05:30)
[2017-06-03] MEDS ORDERED: ACETAMINOPHEN 325 MG TAB PO PRN (05:30)
[2017-06-03] MEDS ORDERED: ZOLPIDEM TARTRATE 5 MG TAB PO PRN (05:30)
[2017-06-03] MEDS ORDERED: MAGNESIUM HYDROXIDE SUSP 30 ML CUP PO PRN (05:30)
[2017-06-03] MEDS ORDERED: ACETAMINOPHEN/HYDROcodone 325 MG/5 MG TAB PO PRN (05:30)
[2017-06-03] MEDS ORDERED: ALPRAZolam 0.5 MG TAB PO PRN (05:30)
[2017-06-03] MEDS ORDERED: SODIUM CHLORIDE 0.9% FLUSH 10 ML FLUSH IV FLUSH PRN (05:30)
[2017-06-03] MEDS: MORPHINE SULFATE 2 MG/ML INJ IV PUSH PRN ×4 (06:41→15:43)
[2017-06-03] MEDS: DOCUSATE SODIUM 50 MG/SENNA 8.6 MG TAB PO SCH ×2 (08:20→21:00)
[2017-06-03] MEDS: SODIUM CHLORIDE 0.9% FLUSH 10 ML FLUSH IV FLUSH SCH ×2 (08:20→21:00)
[2017-06-03] MEDS ORDERED: XANA1TAB2 PO (10:10)
[2017-06-03] MEDS ORDERED: BUSP15TA PO (10:11)
[2017-06-03] MEDS ORDERED: DOXE75CA2 PO (10:11)
[2017-06-03] MEDS ORDERED: ZOLP10TA3 PO (10:12)
[2017-06-03] MEDS ORDERED: DICL50TA PO (10:13)
[2017-06-03] MEDS: PIPERACIL-TAZO 4.5 GM PREMIX 100 ML IV SCH ×2 (12:19→17:42)
--- NOTE | 2017-06-03 12:20 | HHI.HP ---
[facility] Service [place] Primary Care Physician Rory Hemphill MD Admission Diagnosis abdominal pain; cholecystitis Diagnoses: Chief Complaint: Abdominal pain nausea vomiting Travel History International Travel<30 Days: No Contact w/Intl Traveler <30 Da: No Traveled to Known Affected Are: No History of Present Illness 46 years old obese female with history of anemia anxiety depression dyslipidemia and tobacco abuse presented to the ED yesterday complaining of epigastric pain without radiation 10 out of 10 along with nausea comes and goes however yesterday become progressively worse until she came to the hospital first time she was sent home to follow up with her PCP, then patient came right back because of the pain and then CT scan of the abdomen showed early acute cholecystitis. Patient reported that her pain sometimes transferred to the left and the right area across the transverse colon but the most intense pain localized in the right upper quadrant area, patient reported eating popcorn yesterday prior to the episodes Review of Systems All systems reviewed and was positive for what is mentioned in history of present illness otherwise negative Past Family Social History Past Medical History As in history of present illness Past Surgical History section 1 Allergies: Coded Allergies: No Known Allergies (Verified Allergy, Unknown, 06/03/17) Family History Review with the patient,not aware of significant medical history runs in his family Social History Small less than half pack per day, no alcohol or substance abuse Physical Exam Vital Signs Vital Signs Date Time Temp Pulse Resp B/P (MAP) Pulse Ox O2 Delivery O2 Flow Rate FiO2 06/03/17 08:00 97.1 74 16 94/61 (72) 99 06/03/17 06:12 96.4 82 20 118/69 (85) 97 06/03/17 05:41 06/03/17 04:00 76 20 105/68 (80) 98 06/03/17 03:46 20 98 06/03/17 03:22 79 16 106/63 (77) 98 Room Air Physical Exam GENERAL: This is a well-nourished, well-developed patient, in no apparent distress. SKIN: No rashes, warm and dry HEAD: Atraumatic. Normocephalic. EYES: Pupils equal round and reactive. Extraocular motions intact. No scleral icterus. ENT: Nose without bleeding, or drainage, Airway patent. NECK: Trachea midline. Supple CARDIOVASCULAR: Regular rate and rhythm without murmurs, gallops, or rubs. RESPIRATORY: Fair air entry bilaterally. No wheezes, rales, or rhonchi. GASTROINTESTINAL: Abdomen soft, positive tenderness in the upper transverse abdomen but more localized in the right upper quadrant, Hopkins sign positive MUSCULOSKELETAL: Extremities without clubbing, cyanosis, or edema. Pedal pulses appreciated NEUROLOGICAL: Awake and alert. Moves all extremity. Normal speech.no focal neurological deficit Laboratory Laboratory Tests Test 06/03/17 02:15 White Blood Count 11.0 Red Blood Count 4.00 Hemoglobin 11.9 Hematocrit 35.7 Mean Corpuscular Volume 89.4 Mean Corpuscular Hemoglobin 29.6 Mean Corpuscular Hemoglobin Concent 33.2 Red Cell Distribution Width 12.9 Platelet Count 367 Mean Platelet Volume 7.9 Neutrophils (%) (Auto) 57.9 Lymphocytes (%) (Auto) 30.6 Monocytes (%) (Auto) 6.4 Eosinophils (%) (Auto) 3.7 Basophils (%) (Auto) 1.4 Neutrophils # (Auto) 6.3 Lymphocytes # (Auto) 3.4 Monocytes # (Auto) 0.7 Eosinophils # (Auto) 0.4 Basophils # (Auto) 0.2 CBC Comment DIFF FINAL Differential Comment Blood Urea Nitrogen 7 Creatinine 0.69 Random Glucose 90 Total Protein 7.3 Albumin 3.5 Calcium Level 8.5 Magnesium Level 2.3 Alkaline Phosphatase 118 Aspartate Amino Transf (AST/SGOT) 35 Alanine Aminotransferase (ALT/SGPT) 35 Total Bilirubin 0.1 Sodium Level 138 Potassium Level 3.6 Chloride Level 106 Carbon Dioxide Level 24.0 Anion Gap 8 Estimat Glomerular Filtration Rate 92 Total Creatine Kinase 79 Troponin I LESS THAN 0.02 B-Type Natriuretic Peptide 20 Lipase 118 Result Diagram: 06/03/17 0215 06/03/17 0215 Imaging Last Impressions Abdomen/Pelvis CT 06/03/17 0000 Signed Impressions: Service Date/Time: Saturday, June 03, 2017 04:28 - CONCLUSION: 1. Early/ mild acute cholecystitis suspected. No definite stones. No evidence of biliary obstruction. 2. Benign cyst of the left kidney. Yoni E. Agles, MD Caprini VTE Risk Assessment Caprini VTE Risk Assessment: Mod/High Risk (score >= 2) Caprini Risk Assessment Model Point Value = 1 Point Value = 2 Point Value = 3 Point Value = 5 Age 41-60 Minor surgery BMI > 25 kg/m2 Swollen legs Varicose veins or History of unexplained or recurrent spontaneous Oral contraceptives or hormone replacement Sepsis (< 1 month) Serious lung disease, including pneumonia (< 1 month) Abnormal pulmonary function Acute myocardial infarction Congestive heart failure (< 1 month) History of inflammatory bowel disease Medical patient at bed rest Age 61-74 Arthroscopic surgery Major open surgery (> 45 min) Laparoscopic surgery (> 45 min) Malignancy Confined to bed (> 72 hours) Immobilizing plaster cast Central venous access Age >= 75 History of VTE Family history of VTE Factor V Leiden Prothrombin [id number] Lupus anticoagulant Anticardiolipin antibodies Elevated serum homocysteine Heparin-induced thrombocytopenia Other congenital or acquired thrombophilia Stroke (< 1 month) Elective arthroplasty Hip, pelvis, or leg fracture Acute spinal cord injury (< 1 month) Prophylaxis Regimen Total Risk Factor Score Risk Level Prophylaxis Regimen 0-1 Low Early ambulation 2 Moderate Order ONE of the following: *Sequential Compression Device (SCD) *Heparin 5000 units SQ BID 3-4 Higher Order ONE of the following medications: *Heparin 5000 units SQ TID *Enoxaparin/Lovenox 40 mg SQ daily (WT < 150 kg, CrCl > 30 mL/min) *Enoxaparin/Lovenox 30 mg SQ daily (WT < 150 kg, CrCl > 10-29 mL/min) *Enoxaparin/Lovenox 30 mg SQ BID (WT < 150 kg, CrCl > 30 mL/min) AND/OR *Sequential Compression Device (SCD) 5 or more Highest Order ONE of the following medications: *Heparin 5000 units SQ TID (Preferred with Epidurals) *Enoxaparin/Lovenox 40 mg SQ daily (WT < 150 kg, CrCl > 30 mL/min) *Enoxaparin/Lovenox 30 mg SQ daily (WT < 150 kg, CrCl > 10-29 mL/min) *Enoxaparin/Lovenox 30 mg SQ BID (WT < 150 kg, CrCl > 30 mL/min) AND *Sequential Compression Device (SCD) Assessment and Plan Assessment and Plan 46 years old obese female presented with Early acute cholecystitis manifested with atypical epigastric abdominal pain with nausea Anxiety and depression Anemia Hyperlipidemia DVT prophylaxis Plan: Admit to inpatient Started on Zosyn Nothing by mouth Iv fluid Check hiatus scan Consult surgery for cholecystectomy, Dr. sandoval has been contacted and notified And for DVT prophylaxis expecting possible laparoscopic cholecystectomy Discussed Condition With Patient and Physician Certification 2 Midnight Certification Type: Admission for Inpatient Services Order for Inpatient Services The services are ordered in accordance with Medicare regulations or non- Medicare payer requirements, as applicable. In the case of services not specified as inpatient-only, they are appropriately provided as inpatient services in accordance with the 2-midnight benchmark. Estimated LOS (days): 2 days is the estimated time the patient will need to remain in the hospital, assuming treatment plan goals are met and no additional complications. Post-Hospital Plan: Home Bibiana Zhang MD Jun 03, 2017 12:20
[2017-06-03] MEDS: ALPRAZolam 1 MG TAB PO PRN ×2 (12:25→22:09)
[2017-06-03 13:41] LABS: AUTOMATED NEUTROPHIL # 5.7 TH/MM3 (1.8-7.7); BASOPHIL % 0.5 % (0.0-2.0); EOSINOPHIL # 0.3 TH/MM3 (0-0.4); EOSINOPHIL % 3.2 % (0.0-4.0); HEMOGLOBIN 11.8 GM/DL (11.6-15.3); LYMPHOCYTE # 2.9 TH/MM3 (1.0-4.8); MEAN CELL VOLUME 90.1 FL (80.0-100.0); MEAN CORPUSCULAR HEMOGLOBIN 29.6 PG (27.0-34.0); MEAN CORPUSCULAR HGB CONC 32.8 % (32.0-36.0); MEAN PLATELET VOLUME 8.1 FL (7.0-11.0); MONO % 5.3 % (0.0-8.0); MONOCYTE # 0.5 TH/MM3 (0-0.9); PLATELET COUNT 353 TH/MM3 (150-450); RED BLOOD COUNT 3.99 MIL/MM3 (4.00-5.30); RED CELL DISTRIBUTION WIDTH 12.8 % (11.6-17.2); WHITE BLOOD COUNT 9.4 TH/MM3 (4.0-11.0)
[2017-06-03] MEDS ORDERED: HYDROmorphone HCL PF 1 MG/ML VIAL IV PUSH PRN (13:45)
--- NOTE | 2017-06-03 17:17 | MB ---
cc: DEMARCUS TALAVERA M.D. DATE OF CONSULTATION: 06/03/2017. REASON FOR CONSULTATION: Acute cholecystitis HISTORY OF PRESENT ILLNESS: Ms. James is a very pleasant 46-year-old female who presented to the emergency department actually twice yesterday complaining of epigastric pain radiating up into her chest and into her back. The first time she was sent home and told to follow up with her primary. Her pain persisted and she returned to the emergency department late last night. She describes the pain is constant, severe 10/10 in the mid epigastric area. She states the pain radiates to both sides of her abdomen and then into her back. She reports the pain is worse on the right than the left. She reports she has had similar episodes in the past but they were not that bad. She states she did have a significant episode last fall but she was seen in the emergency department and told everything was fine and sent home. She reports that the pain is slightly better since she has been brought into the hospital. She has been given multiple doses of pain medication. The pain is now mainly in the right upper quadrant. She states that yesterday she ate popcorn with butter, which initiated the pain. She has had associated nausea. She denies any vomiting. She denies any fever or chills. She was seen and evaluated in the emergency room and a CT scan revealed a thickened gallbladder with some edema concerning for cholecystitis. Surgical consultation was requested. PAST MEDICAL HISTORY: 1. Kidney stones. 2. Anemia. 3. Anxiety. 4. Depression. 5. Chronic back pain. PAST SURGICAL HISTORY: She reports her only previous surgery is a . SOCIAL HISTORY: She denies alcohol use. She reports cigarette use about five to ten cigarettes a day. She denies any drug use. She lives here locally. FAMILY HISTORY: Her family history is remarkable for pancreatic cancer. MEDICATIONS: 1. Xanax. 2. Ambien. 3. Diclofenac. 4. Percocet. REVIEW OF SYSTEMS: Please see the history of present illness. PHYSICAL EXAMINATION: VITAL SIGNS: Temperature is 97, pulse is 70, blood pressure is 150/80, respiratory rate 20. GENERAL: This is a pleasant obese middle-aged female who appears slightly uncomfortable lying on her right side. HEAD, EYES, EARS, NOSE, THROAT: Pupils equal, round and reactive to light. The sclerae are white. Oropharynx is clear and moist. NECK: The neck is supple. No masses. LUNGS: Clear to auscultation bilaterally. HEART: S1 and S2. No murmur. ABDOMEN: Abdomen soft and tender in the right upper quadrant. No rebound or guarding. Active bowel sounds. No obvious hernias. Low transverse incision noted. EXTREMITIES: Free range of motion x4. NEUROLOGIC: Neurologically she is alert and oriented x3. LABS: White blood cell count 11, hemoglobin 11, platelet count is 367,000. Electrolytes are all within normal limits. Liver function tests within normal limits. Lipase is normal. IMAGING STUDIES: CT scan of the abdomen and pelvis demonstrates a thickened gallbladder and no obvious stones, some edema and no obvious ductal dilatation. Ultrasound is pending at this time. IMPRESSION: Acute cholecystitis. PLAN: I advised the patient that we will schedule her for a laparoscopic cholecystectomy tomorrow. I have ordered an ultrasound to evaluate for stones as well as to check her common bile duct dimensions. Will repeat her liver function tests in the morning to make sure they are not climbing. The risks and benefits of open and laparoscopic cholecystectomy were discussed with her and she is agreeable. We will go ahead and let her eat today as she reports she is very hungry and would like something to eat. We will adjust her pain medications to try and get her more comfortable. The surgery will tentatively be scheduled for tomorrow. MD ARIS Castro/VIOLETTE /4:31 PM /4:45 PM
[2017-06-03] MEDS: KETOROLAC TROMETHAMINE 60 MG/2 ML (IM) VIAL IM PRN (17:39)
[2017-06-03] MEDS: HYDROmorphone HCL PF 2 MG/ML VIAL IV PUSH PRN ×2 (17:43→22:10)
[2017-06-04] VITALS: BP 100/62; PULSE 81; RESP 17; TEMP 98.2; O2SAT 95
[2017-06-04] MEDS: KETOROLAC TROMETHAMINE 60 MG/2 ML (IM) VIAL IM PRN (00:29)
[2017-06-04] MEDS: PIPERACIL-TAZO 4.5 GM PREMIX 100 ML IV SCH ×4 (05:06→17:59)
[2017-06-04] MEDS: HYDROmorphone HCL PF 2 MG/ML VIAL IV PUSH PRN (05:06)
[2017-06-04 06:06] LABS: AUTOMATED NEUTROPHIL # 4.7 TH/MM3 (1.8-7.7); BASOPHIL # 0.1 TH/MM3 (0-0.2); BASOPHIL % 1.5 % (0.0-2.0); EOSINOPHIL # 0.4 TH/MM3 (0-0.4); EOSINOPHIL % 4.4 % (0.0-4.0); HEMATOCRIT 34.1 % (35.0-46.0); HEMOGLOBIN 11.1 GM/DL (11.6-15.3); LYMPH % 31.8 % (9.0-44.0); LYMPHOCYTE # 2.7 TH/MM3 (1.0-4.8); MEAN CELL VOLUME 90.6 FL (80.0-100.0); MEAN CORPUSCULAR HEMOGLOBIN 29.4 PG (27.0-34.0); MEAN CORPUSCULAR HGB CONC 32.4 % (32.0-36.0); MEAN PLATELET VOLUME 7.9 FL (7.0-11.0); MONO % 6.1 % (0.0-8.0); MONOCYTE # 0.5 TH/MM3 (0-0.9); NEUT % 56.2 % (16.0-70.0); PLATELET COUNT 307 TH/MM3 (150-450); RED BLOOD COUNT 3.76 MIL/MM3 (4.00-5.30); RED CELL DISTRIBUTION WIDTH 12.7 % (11.6-17.2); WHITE BLOOD COUNT 8.4 TH/MM3 (4.0-11.0)
[2017-06-04] MEDS: ALPRAZolam 1 MG TAB PO PRN ×3 (06:21→23:57)
[2017-06-04 07:10] LABS: ALBUMIN 2.7 GM/DL (3.4-5.0); BICARBONATE 24.6 MEQ/L (21.0-32.0); CALCIUM 7.4 MG/DL (8.5-10.1); CREATININE 0.73 MG/DL (0.50-1.00); TOTAL BILIRUBIN ADULT 0.5 MG/DL (0.2-1.0)
[2017-06-04 07:50] VITALS: BP 120/76; PULSE 93; RESP 20; TEMP 96.9; O2SAT 98
--- NOTE | 2017-06-04 08:28 | RADRPT ---
EXAM DATE/TIME: 06/03/2017 01:57 [facility] COMPARISON: CHEST PA & LAT, June 02, 2017, 16:00. INDICATIONS : Shortness of breath. MEDICAL HISTORY : None. SURGICAL HISTORY : None. ENCOUNTER: Initial ACUITY: 1 day PAIN SCORE: 3/10 LOCATION: Bilateral chest FINDINGS: A single view of the chest demonstrates the lungs to be symmetrically aerated without evidence of mas s, infiltrate or effusion. The cardiomediastinal contours are unremarkable. Osseous structures are intact. CONCLUSION: No evidence of acute cardiopulmonary disease. Yoni Mac MD on June 03, 2017 at 2:09 Board Certified Radiologist. This report was verified electronically.
[2017-06-04] MEDS ORDERED: POVIDONE IODINE 5% (ANTISEPSIS KIT) 4 APPLICATIONS EACH NARE PRN (08:30)
[2017-06-04] MEDS ORDERED: SODIUM CHLORID 0.9% 500 ML IV PRN (08:30)
[2017-06-04] MEDS ORDERED: METOPROLOL TARTRATE 25 MG TAB PO PRN (08:30)
[2017-06-04] MEDS ORDERED: CHLORHEXIDINE GLUCONATE 2 % 1 PACK (2 CLOTHS) TOPICAL PRN (08:30)
[2017-06-04] MEDS ORDERED: LACTATED RINGER'S 1000 ML IV PRN (08:30)
[2017-06-04] MEDS ORDERED: fentaNYL CITRATE 250 MCG/5 ML AMP ONE (08:48)
[2017-06-04] MEDS ORDERED: MIDAZOLAM HCL 2 MG/2 ML VIAL ONE (08:48)
[2017-06-04] MEDS ORDERED: ACETAMINOPHEN 1000 MG/100 ML 100 ML IV ONE (08:48)
[2017-06-04] MEDS ORDERED: BUPIVACAINE/EPINEPHRINE 0.25% 50 ML VIAL ONE (08:52)
--- NOTE | 2017-06-04 08:59 | RADRPT ---
EXAM DATE/TIME: 06/04/2017 08:27 [facility] COMPARISON: CT ABDOMEN & PELVIS W CONTRAST, June 03, 2017, 4:28. INDICATIONS : Abdominal pain. Pre-op Cholecystectomy. MEDICAL HISTORY : Hypercholesterolemia. Neck pain. Seizures. Headache. Kidney stones. Depression. Anxiety.Anemia. SURGICAL HISTORY : section. Tubal ligation. ENCOUNTER: Initial ACUITY: 1 week PAIN SCORE: 3/10 LOCATION: Abdomen. MEASUREMENTS: LIVER: 17.2 cm length COMMON DUCT: 5 mm RIGHT KIDNEY: 10.8 x 4.7 x 4.5 cm LEFT KIDNEY: 11.3 x 6.4 x 5.3 cm SPLEEN: 12.1 cm length AORTA: 1.6cm maximal FINDINGS: LIVER: Normal echotexture without focal lesion or ductal dilatation. COMMON DUCT: No intraluminal mass or stone visualized. GALLBLADDER: Gallbladder contains innumerable stones and demonstrates abnormal wall thickening. Sonographic Hopkins 's sign is negative. There is no pericholecystic fluid. PANCREAS: Not adequately visualized. However, the pancreas had a normal appearance on yesterday's CT scan. RIGHT KIDNEY: No hydronephrosis, stone or mass. LEFT KIDNEY: No hydronephrosis, stone or mass. There is a simple appearing left lower pole renal cyst measuring a pproximately 3.4 cm. SPLEEN: No focal lesion. AORTA: Non aneurysmal. IVC: Within normal limits. CONCLUSION: 1. Abnormal gallbladder with innumerable stones and diffuse wall thickening. However, sonographic Mur phy sign is negative suggesting against acute cholecystitis. The wall thickening may be related to ch ronic inflammation. 2. No other acute finding is identified. Yoni Townsend MD on June 04, 2017 at 8:54 Board Certified Radiologist. This report was verified electronically.
[2017-06-04] MEDS: DOCUSATE SODIUM 50 MG/SENNA 8.6 MG TAB PO SCH ×2 (09:00→21:20)
[2017-06-04] MEDS: SODIUM CHLORIDE 0.9% FLUSH 10 ML FLUSH IV FLUSH SCH ×2 (09:00→21:21)
--- NOTE | 2017-06-04 10:45 | PD.OP ---
cc: Parish Sanchez MD Operative Report Date of Surgery: Jun 04, 2017 Preoperative Diagnosis: (1) Gallstones (2) Biliary colic (3) Right upper quadrant pain (4) Peritonitis (5) Abnormal ultrasound (6) Abnormal CT scan (7) Cholecystitis Postoperative Diagnosis: (1) Status post laparoscopic cholecystectomy Procedure: Laparoscopic cholecystectomy Anesthesia: Gen. Surgeon: Parish Sanchez Canal Tender(s): Please refer to OR record Operation and Findings: PREOPERATIVE DIAGNOSIS: Cholelithiasis And/or Cholecystitis POSTOP DIAGNOSIS: Status post Laparoscopic cholecystectomy PROCEDURE: Laparoscopic Cholecystectomy ANESTHESIA: General SURGEON: Parish Sanchez M.D. ASST. see operating room records PROCEDURE DETAILS The patient was brought to the operating room and after proper identification. The patient was intubated after the induction of appropriate anesthesia. The patient remained under general anesthesia for the duration of the case. The patient was prepped with an antiseptic over the abdomen in the usual fashion and then he was draped in the usual sterile fashion. Following the draping, the pneumoperitoneum was established via Veress needle after saline load test had been performed via a infra-umbilical incision. After direct visualization of the peritoneum, the trocar was introduced and insufflation was begun. After appropriate insufflation a scope was inserted and the abdomen was visually inspected to be benign in gross visualization. Next, another 5 mm port was placed just below the xiphoid. This was then followed by the placement of 5 mm ports in between the 2 previously placed ports. All port sites were anesthetized with a Marcaine solution. The gallbladder was easily identified. There were a few adhesions. No intraabdominal fluid. Upon retraction of the gallbladder, the infundibulum was identified. After some blunt dissection, the cystic duct was identified and then skeletonized using the small grasper. After appropriate identification of the cystic duct, it was doubly ligated with hemoclips. It was then transected with scissors. This was performed without any complication. Next, a cystic artery was identified and 2 surgical clips on the proximal end and 1 surgical clip on the distal end were applied and this was transected using the laparoscopic scissors. Following this, the gallbladder was easily retracted back and electrocautery was used to dissect the gallbladder fossa. There was a well-established plane. After application of the clips, no further bleeding from this site was appreciated. Hemostasis was attained on the gallbladder fossa using a small amount of electrocautery. Following the removal of the gallbladder from the gallbladder fossa, it was placed in an endobag and subsequently removed from the supraumbilical port site. We double checked for hemostasis at the cystic artery. Also checked the cystic duct stump which showed no bile leakage. All ports were then removed The infra-umbilical fascia was closed directly with 0 Vicryl and then the dermis was closed at all 3 incision sites with a 4-0 absorbable monofilament in a running subcuticular manner. The fascia was closed in a simple interrupted manner. Steri-Strips and dressings were placed over the incision sites. The patient was awakened from anesthesia. The patient was returned to post-anesthesia care unit in a stable condition. DETAIL SPECIFIC TO THIS PROCEDURE: Fairly inflamed gallbladder with numerous stones Umbilical incision elongated to retrieve the gallbladder The appendix appeared normal She has a small right ovarian cyst Minor adhesions from her in the left lower quadrant Parish Erickson M.D., MD Jun 04, 2017 10:45
[2017-06-04 10:55] VITALS: PULSE 103
[2017-06-04] MEDS ORDERED: MEPERIDINE HCL 25 MG/ML VIAL ONE (10:55)
[2017-06-04] MEDS ORDERED: NORC5TAB PO (10:57)
[2017-06-04] MEDS: MORPHINE SULFATE 2 MG/ML INJ IV PUSH PRN ×5 (11:00→23:57)
[2017-06-04] MEDS: SODIUM CHLOR 0.9% 1000 ML INJ 1,000 ML IV SCH ×2 (11:16→21:16)
--- NOTE | 2017-06-04 12:18 | EKG ---
Date Performed: 06/03/2017 Time Performed: 01:46:08 PTAGE: 46 years EKG: Sinus rhythm NORMAL ECG Since the prior tracing, there has been no significant change DOCTOR: Chace Kimball Interpretating Date/Time 06/04/2017 12:17:21
--- NOTE | 2017-06-04 12:54 | HHI.PR ---
Subjective Remarks 46 years old obese female with history of anemia anxiety depression dyslipidemia and tobacco abuse presented to the ED yesterday complaining of epigastric pain without radiation 10 out of 10 along with nausea comes and goes however yesterday become progressively worse until she came to the hospital first time she was sent home to follow up with her PCP, then patient came right back because of the pain and then CT scan of the abdomen showed early acute cholecystitis. Patient reported that her pain sometimes transferred to the left and the right area across the transverse colon but the most intense pain localized in the right upper quadrant area, patient reported eating popcorn yesterday prior to the episodes 2- status post laparoscopic cholecystectomy today Feels uncomfortable after surgery We'll hopefully be able to discharge tomorrow Objective Vitals Vital Signs Date Time Temp Pulse Resp B/P (MAP) Pulse Ox O2 Delivery O2 Flow Rate FiO2 06/04/17 11:50 98.3 81 15 99/55 (70) 97 Nasal Cannula 3 06/04/17 11:35 83 15 96/59 (71) 97 Nasal Cannula 3 06/04/17 11:25 89 16 110/62 (78) 100 Nasal Cannula 3 06/04/17 11:20 89 16 110/63 (79) 100 Nasal Cannula 3 06/04/17 11:05 87 16 108/60 (76) 100 Nasal Cannula 3 06/04/17 11:00 98 18 133/89 (104) 95 Nasal Cannula 3 06/04/17 10:55 103 06/04/17 10:55 98.2 109 20 123/77 (92) 95 Nasal Cannula 3 06/04/17 08:05 98.2 90 16 120/71 (87) 99 06/04/17 07:50 96.9 93 20 120/76 (91) 98 06/04/17 00:00 98.2 81 17 100/62 (75) 95 06/03/17 20:00 98.0 86 18 95/50 (65) 96 06/03/17 16:00 98.0 88 16 110/70 (83) 100 I/O 06/03/17 06/03/17 06/03/17 06/04/17 06/04/17 06/04/17 07:00 15:00 23:00 07:00 15:00 23:00 Intake Total 1100 ml 1100 ml 200 ml 1000 ml Output Total 50 ml Balance 1100 ml 1100 ml 200 ml 950 ml Intake IV Total 1100 ml 1100 ml 200 ml 1000 ml Output Estimated Blood Loss 50 ml # Voids 4 3 Result Diagram: 06/04/17 0535 06/04/17 0535 Other Results Laboratory Tests Test 06/03/17 02:15 06/03/17 12:53 06/04/17 05:35 White Blood Count 11.0 TH/MM3 9.4 TH/MM3 8.4 TH/MM3 Red Blood Count 4.00 MIL/MM3 3.99 MIL/MM3 3.76 MIL/MM3 Hemoglobin 11.9 GM/DL 11.8 GM/DL 11.1 GM/DL Hematocrit 35.7 % 36.0 % 34.1 % Mean Corpuscular Volume 89.4 FL 90.1 FL 90.6 FL Mean Corpuscular Hemoglobin 29.6 PG 29.6 PG 29.4 PG Mean Corpuscular Hemoglobin Concent 33.2 % 32.8 % 32.4 % Red Cell Distribution Width 12.9 % 12.8 % 12.7 % Platelet Count 367 TH/MM3 353 TH/MM3 307 TH/MM3 Mean Platelet Volume 7.9 FL 8.1 FL 7.9 FL Neutrophils (%) (Auto) 57.9 % 60.0 % 56.2 % Lymphocytes (%) (Auto) 30.6 % 31.0 % 31.8 % Monocytes (%) (Auto) 6.4 % 5.3 % 6.1 % Eosinophils (%) (Auto) 3.7 % 3.2 % 4.4 % Basophils (%) (Auto) 1.4 % 0.5 % 1.5 % Neutrophils # (Auto) 6.3 TH/MM3 5.7 TH/MM3 4.7 TH/MM3 Lymphocytes # (Auto) 3.4 TH/MM3 2.9 TH/MM3 2.7 TH/MM3 Monocytes # (Auto) 0.7 TH/MM3 0.5 TH/MM3 0.5 TH/MM3 Eosinophils # (Auto) 0.4 TH/MM3 0.3 TH/MM3 0.4 TH/MM3 Basophils # (Auto) 0.2 TH/MM3 0.0 TH/MM3 0.1 TH/MM3 CBC Comment DIFF FINAL DIFF FINAL DIFF FINAL Differential Comment Blood Urea Nitrogen 7 MG/DL 6 MG/DL Creatinine 0.69 MG/DL 0.73 MG/DL Random Glucose 90 MG/DL 90 MG/DL Total Protein 7.3 GM/DL 6.0 GM/DL Albumin 3.5 GM/DL 2.7 GM/DL Calcium Level 8.5 MG/DL 7.4 MG/DL Magnesium Level 2.3 MG/DL Alkaline Phosphatase 118 U/L 133 U/L Aspartate Amino Transf (AST/SGOT) 35 U/L 96 U/L Alanine Aminotransferase (ALT/SGPT) 35 U/L 108 U/L Total Bilirubin 0.1 MG/DL 0.5 MG/DL Sodium Level 138 MEQ/L 138 MEQ/L Potassium Level 3.6 MEQ/L 3.8 MEQ/L Chloride Level 106 MEQ/L 107 MEQ/L Carbon Dioxide Level 24.0 MEQ/L 24.6 MEQ/L Anion Gap 8 MEQ/L 6 MEQ/L Estimat Glomerular Filtration Rate 92 ML/MIN 87 ML/MIN Total Creatine Kinase 79 U/L Troponin I LESS THAN 0.02 NG/ML B-Type Natriuretic Peptide 20 PG/ML Lipase 118 U/L Protein Corrected Calcium 8.0 MG/DL Imaging Last Impressions Abdomen/Pelvis CT 06/03/17 0000 Signed Impressions: Service Date/Time: Saturday, June 03, 2017 04:28 - CONCLUSION: 1. Early/ mild acute cholecystitis suspected. No definite stones. No evidence of biliary obstruction. 2. Benign cyst of the left kidney. Yoni Mac MD Objective Remarks GENERAL: Awake alert oriented 3 talkative and cooperative --appears uncomfortable at this time SKIN: Warm and dry. HEAD: Atraumatic. Normocephalic. EYES: Pupils equal and round. No scleral icterus. No injection or drainage. Extraocular muscles intact ENT: No nasal bleeding or discharge. Mucous membranes pink and moist. Tongue is midline NECK: Trachea midline. No JVD. Supple CARDIOVASCULAR: Regular rate and rhythm. S1 and S2 no S3 or S4 no heave or thrill or rub or gallop RESPIRATORY: No accessory muscle use. Clear to auscultation. Breath sounds equal bilaterally. GASTROINTESTINAL: Abdomen mild tenderness some distention with areas dressed - hepatic and splenic margins not palpable. MUSCULOSKELETAL: Extremities without clubbing, cyanosis, or edema. No obvious deformities. NEUROLOGICAL: Awake and alert. No obvious cranial nerve deficits. Motor grossly within normal limits. Five out of 5 muscle strength in the arms and legs. Normal speech. PSYCHIATRIC: Appropriate mood and affect; insight and judgment normal. Procedures Operative Report Date of Surgery: Jun 04, 2017 Preoperative Diagnosis: (1) Gallstones (2) Biliary colic (3) Right upper quadrant pain (4) Peritonitis (5) Abnormal ultrasound (6) Abnormal CT scan (7) Cholecystitis Postoperative Diagnosis: (1) Status post laparoscopic cholecystectomy Procedure: Laparoscopic cholecystectomy Anesthesia: Gen. Surgeon: Parish Sanchez Project Intern(s): Please refer to OR record Operation and Findings: PREOPERATIVE DIAGNOSIS: Cholelithiasis And/or Cholecystitis POSTOP DIAGNOSIS: Status post Laparoscopic cholecystectomy PROCEDURE: Laparoscopic Cholecystectomy ANESTHESIA: General SURGEON: Parish Sanchez M.D. ASST. see operating room records PROCEDURE DETAILS The patient was brought to the operating room and after proper identification. The patient was intubated after the induction of appropriate anesthesia. The patient remained under general anesthesia for the duration of the case. The patient was prepped with an antiseptic over the abdomen in the usual fashion and then he was draped in the usual sterile fashion. Following the draping, the pneumoperitoneum was established via Veress needle after saline load test had been performed via a infra-umbilical incision. After direct visualization of the peritoneum, the trocar was introduced and insufflation was begun. After appropriate insufflation a scope was inserted and the abdomen was visually inspected to be benign in gross visualization. Next, another 5 mm port was placed just below the xiphoid. This was then followed by the placement of 5 mm ports in between the 2 previously placed ports. All port sites were anesthetized with a Marcaine solution. The gallbladder was easily identified. There were a few adhesions. No intraabdominal fluid. Upon retraction of the gallbladder, the infundibulum was identified. After some blunt dissection, the cystic duct was identified and then skeletonized using the small grasper. After appropriate identification of the cystic duct, it was doubly ligated with hemoclips. It was then transected with scissors. This was performed without any complication. Next, a cystic artery was identified and 2 surgical clips on the proximal end and 1 surgical clip on the distal end were applied and this was transected using the laparoscopic scissors. Following this, the gallbladder was easily retracted back and electrocautery was used to dissect the gallbladder fossa. There was a well-established plane. After application of the clips, no further bleeding from this site was appreciated. Hemostasis was attained on the gallbladder fossa using a small amount of electrocautery. Following the removal of the gallbladder from the gallbladder fossa, it was placed in an endobag and subsequently removed from the supraumbilical port site. We double checked for hemostasis at the cystic artery. Also checked the cystic duct stump which showed no bile leakage. All ports were then removed The infra-umbilical fascia was closed directly with 0 Vicryl and then the dermis was closed at all 3 incision sites with a 4-0 absorbable monofilament in a running subcuticular manner. The fascia was closed in a simple interrupted manner. Steri-Strips and dressings were placed over the incision sites. The patient was awakened from anesthesia. The patient was returned to post-anesthesia care unit in a stable condition. DETAIL SPECIFIC TO THIS PROCEDURE: Fairly inflamed gallbladder with numerous stones Umbilical incision elongated to retrieve the gallbladder The appendix appeared normal She has a small right ovarian cyst Minor adhesions from her in the left lower quadrant Parish Erickson M.D., MD Medications and IVs Current Medications Lorazepam (Ativan Inj) 0.5 mg ONCE ONCE IV PUSH Last administered on at 03:17; Start 06/03/17 at 03:00; Stop 06/03/17 at 03:01; Status DC Ondansetron HCl (Zofran Inj) 4 mg ONCE ONCE IV PUSH Last administered on at 03:08; Start 06/03/17 at 03:00; Stop 06/03/17 at 03:01; Status DC Morphine Sulfate (Morphine Inj) 4 mg ONCE ONCE IV PUSH Last administered on at 03:18; Start 06/03/17 at 03:00; Stop 06/03/17 at 03:01; Status DC Nitroglycerin (Nitrostat Sl) 0.4 mg ONCE ONCE SL ; Start 06/03/17 at 04:30; Stop 06/03/17 at 05:03; Status DC Iohexol (Omnipaque 350 Inj) 100 ml STK-MED ONCE IVCONTRAST Last administered on 06/03/17at 04:40; Start 06/03/17 at 04:40; Stop 06/03/17 at 04:49; Status DC Hydromorphone HCl (Dilaudid Pf Inj) 1 mg ONCE ONCE IV PUSH Last administered on 06/03/17at 05:17; Start 06/03/17 at 05:15; Stop 06/03/17 at 05:16; Status DC Piperacillin Sod/ Tazobactam Sod 100 ml @ 200 mls/hr ONCE ONCE IV Last administered on 06/03/17at 05:19; Start 06/03/17 at 05:15; Stop 06/03/17 at 05:44 ; Status DC Sodium Chloride 1,000 ml @ 999 mls/hr BOLUS ONCE IV Last administered on 06/03at 05:19; Start 06/03/17 at 05:15; Stop 06/03/17 at 06:15; Status DC Piperacillin Sod/ Tazobactam Sod 100 ml @ 200 mls/hr Q6H IV Last administered on 06/04/17at 05:06; Start 06/03/17 at 12:00 Sodium Chloride 1,000 ml @ 100 mls/hr Q10H IV Last administered on 06/03/17at 17:47; Start 06/03/17 at 05:16 Sodium Chloride (NS Flush) 2 ml UNSCH PRN IV FLUSH FLUSH AFTER USING IV ACCESS Last administered on 06/03/17at 06:41; Start 06/03/17 at 05:30 Sodium Chloride (NS Flush) 2 ml BID IV FLUSH Last administered on 06/04/17at 09: 00; Start 06/03/17 at 09:00 Ondansetron HCl (Zofran Inj) 4 mg Q6H PRN IVP NAUSEA OR VOMITING; Start at 05:30 Acetaminophen (Tylenol) 650 mg Q6H PRN PO FEVER; Start 06/03/17 at 05:30 Acetaminophen/ Hydrocodone Bitart ([place] 5-325 Mg) 1 tab Q4H PRN PO PAIN SCALE 3 TO 5; Start 06/03/17 at 05:30; Stop 06/03/17 at 14:21; Status DC Morphine Sulfate (Morphine Inj) 2 mg Q3H PRN IV PUSH Pain 6-10 Last administered on 06/04/17at 11:00; Start 06/03/17 at 05:30 Senna/Docusate Sodium (Federica-Colace) 1 tab BID PO ; Start 06/03/17 at 09:00 Magnesium Hydroxide (Milk Of Magnesia Liq) 30 ml Q12H PRN PO Mild constipation ; Start 06/03/17 at 05:30 Sennosides (Senokot) 17.2 mg Q12H PRN PO Moderate constipation; Start 06/03/17 at 05:30 Bisacodyl (Dulcolax Supp) 10 mg DAILY PRN RECTAL SEVERE CONSITIPATION; Start at 05:30 Lactulose (Lactulose Liq) 30 ml DAILY PRN PO SEVERE CONSITIPATION; Start at 05:30 Alprazolam (Xanax) 0.5 mg Q8H PRN PO ANXIETY; Start 06/03/17 at 05:30; Stop at 12:20; Status DC Zolpidem Tartrate (Ambien) 5 mg HS PRN PO INSOMNIA; Start 06/03/17 at 05:30 Alprazolam (Xanax) 1 mg Q8H PRN PO anxiety Last administered on 06/04/17at 06:21 ; Start 06/03/17 at 12:15 Ketorolac Tromethamine (Toradol Inj) 30 mg Q6H PRN IM ADJUNCT PAIN SCALE 3 TO 5 Last administered on 06/04/17at 00:29; Start 06/03/17 at 13:45; Stop 06/08/17 at 13:44 Hydromorphone HCl (Dilaudid Pf Inj) 1 mg Q4H PRN IV PUSH PAIN SCALE 3 TO 6; Start 06/03/17 at 13:45; Stop 06/03/17 at 17:35; Status DC Oxycodone/ Acetaminophen (Percocet 7.5-325 Mg) 1 tab Q4H PRN PO PAIN SCALE 1 TO 2; Start 06/03/17 at 13:45 Hydromorphone HCl (Dilaudid Pf Inj) 1 mg Q4H PRN IV PUSH PAIN 3-6 Last administered on 06/04/17at 05:06; Start 06/03/17 at 17:45 Lactated Ringer's 1,000 ml @ 30 mls/hr Q24H PRN IV SEE LABEL COMMENTS Last administered on 06/04/17at 08:10; Start 06/04/17 at 08:30; Stop 06/07/17 at 08:29 Sodium Chloride 500 ml @ 30 mls/hr [id number] PRN IV SEE LABEL COMMENTS; Start at 08:30; Stop 06/07/17 at 08:29 Metoprolol Tartrate (Lopressor) 25 mg [employer] PRN PO SEE LABEL COMMENTS; Start 06/04/17 at 08:30; Stop 06/07/17 at 08:29 Povidone Iodine (Betadine 5% Antisepsis Kit) 1 applic [employer] PRN EACH NARE SEE LABEL COMMENTS; Start 06/04/17 at 08:30; Stop 06/07/17 at 08:29 Chlorhexidine Gluconate (Chlorhexidine 2% Cloth) 3 pack [employer] PRN TOPICAL SEE LABEL COMMENTS; Start 06/04/17 at 08:30; Stop 06/07/17 at 08:29 Acetaminophen 100 ml @ As Directed STK-MED ONCE IV Last administered on at 08:45; Start 06/04/17 at 08:48; Stop 06/04/17 at 08:49; Status DC Midazolam HCl (Versed Inj) 2 mg STK-MED ONCE .ROUTE Last administered on at 08:45; Start 06/04/17 at 08:48; Stop 06/04/17 at 08:49; Status DC Fentanyl Citrate (fentaNYL INJ) 250 mcg STK-MED ONCE .ROUTE Last administered on 06/04/17at 08:45; Start 06/04/17 at 08:48; Stop 06/04/17 at 08:49; Status DC Bupivacaine HCl/ Epinephrine Bitart (Sensorcaine-Epinephrine 0.25% Inj) 50 ml STK-MED ONCE .ROUTE Last administered on 06/04/17at 10:29; Start 06/04/17 at 08: 52; Stop 06/04/17 at 08:53; Status DC Meperidine HCl (Demerol Inj) 25 mg STK-MED ONCE .ROUTE Last administered on at 10:55; Start 06/04/17 at 10:55; Stop 06/04/17 at 10:56; Status DC A/P Problem List: (1) Status post laparoscopic cholecystectomy ICD Code: Z90.49 - Acquired absence of other specified parts of digestive tract (2) Right upper quadrant pain ICD Code: R10.11 - Right upper quadrant pain (3) Gallstones ICD Code: K80.20 - Calculus of gallbladder without cholecystitis without obstruction (4) Abdominal pain ICD Code: R10.9 - Unspecified abdominal pain Status: Acute (5) Cholecystitis ICD Code: K81.9 - Cholecystitis, unspecified Status: Acute Assessment and Plan 46 years old obese female presented with Early acute cholecystitis manifested with atypical epigastric abdominal pain with nausea Anxiety and depression Anemia Hyperlipidemia DVT prophylaxis Status post laparoscopic cholecystectomy on 06/04/17 Plan: Admit to inpatient Started on Zosyn Nothing by mouth Iv fluid Check HIDA scan Consult surgery for cholecystectomy, Dr. sandoval has been contacted and notified-- patient had surgery on 06/04/17 with a laparoscopic cholecystectomy DVT prophylaxis Discussed Condition With Patient and Discharge Planning Hopefully pending improvement tomorrow Basilio Patterson DO Jun 04, 2017 12:54
[2017-06-04] MEDS ORDERED: ALPRAZolam 1 MG TAB PO PRN (13:00)
[2017-06-04 15:13] VITALS: BP 125/61; PULSE 90; RESP 20; TEMP 97.7; O2SAT 94
[2017-06-04 20:00] VITALS: BP 144/75; PULSE 100; RESP 20; TEMP 98.6; O2SAT 97
[2017-06-04] MEDS ORDERED: DOXEPIN HCL 25 MG CAP PO SCH (21:00)
[2017-06-04] MEDS ORDERED: ZOLPIDEM TARTRATE 10 MG TAB PO PRN (21:00)
[2017-06-04] MEDS: busPIRone HCL 5 MG TAB PO SCH (21:21)
[2017-06-05] VITALS: BP 141/74; PULSE 91; RESP 20; TEMP 97.3; O2SAT 97
[2017-06-05] MEDS: MORPHINE SULFATE 2 MG/ML INJ IV PUSH PRN ×3 (00:05→08:59)
[2017-06-05] MEDS: PIPERACIL-TAZO 4.5 GM PREMIX 100 ML IV SCH ×2 (00:08→05:31)
[2017-06-05] MEDS: oxyCODONE/ACETAMINOPHEN 7.5 MG/325 MG TAB PO PRN ×2 (02:59→10:27)
[2017-06-05] MEDS: ALPRAZolam 1 MG TAB PO PRN (05:37)
[2017-06-05] MEDS: HYDROmorphone HCL PF 2 MG/ML VIAL IV PUSH PRN (05:39)
[2017-06-05] MEDS: SODIUM CHLOR 0.9% 1000 ML INJ 1,000 ML IV SCH (07:16)
[2017-06-05 07:43] LABS: AUTOMATED NEUTROPHIL # 9.4 TH/MM3 (1.8-7.7); BASOPHIL % 0.2 % (0.0-2.0); EOSINOPHIL % 0.3 % (0.0-4.0); HEMATOCRIT 31.7 % (35.0-46.0); HEMOGLOBIN 10.2 GM/DL (11.6-15.3); LYMPH % 18.8 % (9.0-44.0); LYMPHOCYTE # 2.3 TH/MM3 (1.0-4.8); MEAN CELL VOLUME 90.4 FL (80.0-100.0); MEAN CORPUSCULAR HEMOGLOBIN 29.1 PG (27.0-34.0); MEAN CORPUSCULAR HGB CONC 32.2 % (32.0-36.0); MEAN PLATELET VOLUME 7.9 FL (7.0-11.0); MONO % 4.5 % (0.0-8.0); MONOCYTE # 0.5 TH/MM3 (0-0.9); NEUT % 76.2 % (16.0-70.0); PLATELET COUNT 323 TH/MM3 (150-450); RED BLOOD COUNT 3.51 MIL/MM3 (4.00-5.30); RED CELL DISTRIBUTION WIDTH 13.4 % (11.6-17.2); WHITE BLOOD COUNT 12.2 TH/MM3 (4.0-11.0)
[2017-06-05 07:46] LABS: CHLORIDE 107 MEQ/L (98-107); SODIUM (NA) 139 MEQ/L (136-145)
[2017-06-05 07:55] LABS: CALCIUM 7.9 MG/DL (8.5-10.1); GLUCOSE,RANDOM 128 MG/DL (74-106)
[2017-06-05 07:56] LABS: BLOOD UREA NITROGEN 4 MG/DL (7-18); MAGNESIUM 2.6 MG/DL (1.5-2.5)
[2017-06-05 07:59] LABS: ALT (GPT) 109 U/L (10-53); AST (GOT) 74 U/L (15-37); CREATININE 0.72 MG/DL (0.50-1.00); GLOMERULAR FILTRATION RATE 88 ML/MIN (>89)
[2017-06-05 08:00] VITALS: BP 96/60; PULSE 83; RESP 18; TEMP 96.6; O2SAT 97
[2017-06-05 08:00] LABS: PHOSPHORUS 2.2 MG/DL (2.5-4.9)
[2017-06-05 08:01] LABS: TOTAL BILIRUBIN ADULT 0.4 MG/DL (0.2-1.0); TOTAL PROTEIN 6.7 GM/DL (6.4-8.2)
[2017-06-05 08:02] LABS: ALKALINE PHOSPHATASE 148 U/L (45-117)
[2017-06-05] MEDS: busPIRone HCL 5 MG TAB PO SCH (08:55)
[2017-06-05] MEDS: SODIUM CHLORIDE 0.9% FLUSH 10 ML FLUSH IV FLUSH SCH (08:57)
[2017-06-05] MEDS: DOCUSATE SODIUM 50 MG/SENNA 8.6 MG TAB PO SCH (09:00)
[2017-06-05] MEDS ORDERED: BISACODYL 10 MG SUPP RECTAL ONE (11:15)
[2017-06-05] MEDS ORDERED: SIMETHICONE 125 MG CHEWABLE TAB PO ONE (11:15)
--- NOTE | 2017-06-05 11:15 | HHI.DCPOC ---
Discharge Care Plan Diagnosis: (1) Cholecystitis (2) Status post laparoscopic cholecystectomy Goals to Promote Your Health * To prevent worsening of your condition and complications * To maintain your health at the optimal level Directions to Meet Your Goals Take your medications as prescribed Follow your dietary instruction Follow activity as directed Keep your appointments as scheduled Take your immunizations and boosters as scheduled If your symptoms worsen call your PCP, if no PCP go to Urgent Care Center or Emergency Room Smoking is Dangerous to Your Health. Avoid second hand smoke Call the 24-hour hour crisis hotline for domestic abuse at [employer] MD Jun 05, 2017 11:15
--- NOTE | 2017-06-05 11:24 | HHI.DS ---
Discharge Summary Admission Date Jun 03, 2017 at 05:20 Discharge Date: Jun 05, 2017 Admitting Diagnosis abdominal pain; cholecystitis (1) Status post laparoscopic cholecystectomy ICD Code: Z90.49 - Acquired absence of other specified parts of digestive tract (2) Right upper quadrant pain ICD Code: R10.11 - Right upper quadrant pain (3) Gallstones ICD Code: K80.20 - Calculus of gallbladder without cholecystitis without obstruction (4) Abdominal pain ICD Code: R10.9 - Unspecified abdominal pain Status: Acute (5) Cholecystitis ICD Code: K81.9 - Cholecystitis, unspecified Status: Acute Procedures Operative Report Date of Surgery: Jun 04, 2017 Preoperative Diagnosis: (1) Gallstones (2) Biliary colic (3) Right upper quadrant pain (4) Peritonitis (5) Abnormal ultrasound (6) Abnormal CT scan (7) Cholecystitis Postoperative Diagnosis: (1) Status post laparoscopic cholecystectomy Procedure: Laparoscopic cholecystectomy Anesthesia: Gen. Surgeon: Parish Sanchez Toolroom Clerk(s): Please refer to OR record Operation and Findings: PREOPERATIVE DIAGNOSIS: Cholelithiasis And/or Cholecystitis POSTOP DIAGNOSIS: Status post Laparoscopic cholecystectomy PROCEDURE: Laparoscopic Cholecystectomy ANESTHESIA: General SURGEON: Parish SALTER. see operating room records PROCEDURE DETAILS The patient was brought to the operating room and after proper identification. The patient was intubated after the induction of appropriate anesthesia. The patient remained under general anesthesia for the duration of the case. The patient was prepped with an antiseptic over the abdomen in the usual fashion and then he was draped in the usual sterile fashion. Following the draping, the pneumoperitoneum was established via Veress needle after saline load test had been performed via a infra-umbilical incision. After direct visualization of the peritoneum, the trocar was introduced and insufflation was begun. After appropriate insufflation a scope was inserted and the abdomen was visually inspected to be benign in gross visualization. Next, another 5 mm port was placed just below the xiphoid. This was then followed by the placement of 5 mm ports in between the 2 previously placed ports. All port sites were anesthetized with a Marcaine solution. The gallbladder was easily identified. There were a few adhesions. No intraabdominal fluid. Upon retraction of the gallbladder, the infundibulum was identified. After some blunt dissection, the cystic duct was identified and then skeletonized using the small grasper. After appropriate identification of the cystic duct, it was doubly ligated with hemoclips. It was then transected with scissors. This was performed without any complication. Next, a cystic artery was identified and 2 surgical clips on the proximal end and 1 surgical clip on the distal end were applied and this was transected using the laparoscopic scissors. Following this, the gallbladder was easily retracted back and electrocautery was used to dissect the gallbladder fossa. There was a well-established plane. After application of the clips, no further bleeding from this site was appreciated. Hemostasis was attained on the gallbladder fossa using a small amount of electrocautery. Following the removal of the gallbladder from the gallbladder fossa, it was placed in an endobag and subsequently removed from the supraumbilical port site. We double checked for hemostasis at the cystic artery. Also checked the cystic duct stump which showed no bile leakage. All ports were then removed The infra-umbilical fascia was closed directly with 0 Vicryl and then the dermis was closed at all 3 incision sites with a 4-0 absorbable monofilament in a running subcuticular manner. The fascia was closed in a simple interrupted manner. Steri-Strips and dressings were placed over the incision sites. The patient was awakened from anesthesia. The patient was returned to post-anesthesia care unit in a stable condition. DETAIL SPECIFIC TO THIS PROCEDURE: Fairly inflamed gallbladder with numerous stones Umbilical incision elongated to retrieve the gallbladder The appendix appeared normal She has a small right ovarian cyst Minor adhesions from her in the left lower quadrant Parish Erickson M.D., MD Brief History - From Admission 46 years old obese female with history of anemia anxiety depression dyslipidemia and tobacco abuse presented to the ED yesterday complaining of epigastric pain without radiation 10 out of 10 along with nausea comes and goes however yesterday become progressively worse until she came to the hospital first time she was sent home to follow up with her PCP, then patient came right back because of the pain and then CT scan of the abdomen showed early acute cholecystitis. Patient reported that her pain sometimes transferred to the left and the right area across the transverse colon but the most intense pain localized in the right upper quadrant area, patient reported eating popcorn yesterday prior to the episodes CBC/BMP: 06/05/17 0710 06/05/17 0710 Significant Findings Laboratory Tests Test 06/03/17 02:15 06/03/17 12:53 06/04/17 05:35 06/05/17 07:10 Alkaline Phosphatase 118 U/L (45-117) 133 U/L (45-117) 148 U/L (45-117) Total Bilirubin 0.1 MG/DL (0.2-1.0) Troponin I LESS THAN 0.02 NG/ML Red Blood Count 3.99 MIL/MM3 (4.00-5.30) 3.76 MIL/MM3 (4.00-5.30) 3.51 MIL/MM3 (4.00-5.30) Hemoglobin 11.1 GM/DL (11.6-15.3) 10.2 GM/DL (11.6-15.3) Hematocrit 34.1 % (35.0-46.0) 31.7 % (35.0-46.0) Eosinophils (%) (Auto) 4.4 % (0.0-4.0) Blood Urea Nitrogen 6 MG/DL (7-18) 4 MG/DL (7-18) Total Protein 6.0 GM/DL (6.4-8.2) Albumin 2.7 GM/DL (3.4-5.0) 3.0 GM/DL (3.4-5.0) Calcium Level 7.4 MG/DL (8.5-10.1) 7.9 MG/DL (8.5-10.1) Aspartate Amino Transf (AST/SGOT) 96 U/L (15-37) 74 U/L (15-37) Alanine Aminotransferase (ALT/SGPT) 108 U/L (10-53) 109 U/L (10-53) Estimat Glomerular Filtration Rate 87 ML/MIN (>89) 88 ML/MIN (>89) Protein Corrected Calcium 8.0 MG/DL (8.5-10.1) White Blood Count 12.2 TH/MM3 (4.0-11.0) Neutrophils (%) (Auto) 76.2 % (16.0-70.0) Neutrophils # (Auto) 9.4 TH/MM3 (1.8-7.7) Random Glucose 128 MG/DL (74-106) Phosphorus Level 2.2 MG/DL (2.5-4.9) Magnesium Level 2.6 MG/DL (1.5-2.5) Imaging Last Impressions Abdomen Ultrasound 06/04/17 0000 Signed Impressions: Service Date/Time: Sunday, June 04, 2017 08:27 - CONCLUSION: 1. Abnormal gallbladder with innumerable stones and diffuse wall thickening. However, sonographic Hopkins sign is negative suggesting against acute cholecystitis. The wall thickening may be related to chronic inflammation. 2. No other acute finding is identified. Yoni Townsend MD Chest X-Ray 06/03/17 0000 Signed Impressions: Service Date/Time: Saturday, June 03, 2017 01:57 - CONCLUSION: No evidence of acute cardiopulmonary disease. Yoni Mac MD Abdomen/Pelvis CT 06/03/17 0000 Signed Impressions: Service Date/Time: Saturday, June 03, 2017 04:28 - CONCLUSION: 1. Early/ mild acute cholecystitis suspected. No definite stones. No evidence of biliary obstruction. 2. Benign cyst of the left kidney. Yoni Mac MD PE at Discharge Lying in bed, no acute distress, awake, alert Abdomen has multiple surgical incisions with Steri-Strips in place, all appear dry, clean, and intact Hospital Course Patient was admitted. Underwent laparoscopic cholecystectomy with no significant postoperative complications. Was transitioned to a p.o. diet and p.o. pain medications. Patient has met maximal benefit from hospitalization and is clinically stable for discharge. Pt Condition on Discharge: Stable Discharge Disposition: Discharge Home Discharge Time: <= 30 minutes Discharge Instructions DIET: Follow Instructions for: As Tolerated, No Restrictions Activities you can perform: Weight Bearing as Ana Cristina Other Activity Instructions: post-op activity restrictions instructions per surgery Follow up Referrals: PCP Follow-up - 2 Weeks Surgical - 10 Days with Parish Sanchez MD New Medications: Hydrocodone-Acetaminophen (Surveyor) 5 Mg-325 Mg Tab 1 TAB PO Q6H PRN for PAIN, #20 TAB 0 Refills Continued Medications: Alprazolam (Xanax) 1 Mg Tab 1 MG PO Q8H PRN for ANXIETY, TAB 0 Refills Buspirone (Buspirone) 15 Mg Tab 15 MG PO BID for Anxiety, TAB 0 Refills Diclofenac Potassium (Diclofenac Potassium) 50 Mg Tab 75 MG PO TID, #90 TAB 0 Refills Doxepin (Doxepin) 75 Mg Cap 75 MG PO HS, #30 CAP 0 Refills Nabumetone (Nabumetone) 500 Mg Tab 500 MG PO BID for Pain-Inflammation, #60 TAB 0 Refills Oxycodone-Acetaminophen (Percocet) 5-325 mg Tab 1 TAB PO Q4H PRN for PAIN, TAB 0 Refills Zolpidem (Zolpidem) 10 Mg Tab 10 MG PO HS PRN for INSOMNIA, TAB 0 Refills Pro Person MD Jun 05, 2017 11:23
--- NOTE | 2017-06-05 11:42 | HHI.PR ---
Subjective Subjective Notes Resting in bed Tolerated dinner last night Pain controlled Objective Vitals/I&O Vital Signs Date Time Temp Pulse Resp B/P (MAP) Pulse Ox O2 Delivery O2 Flow Rate FiO2 06/05/17 04:58 18 06/05/17 00:00 97.3 91 141/74 (96) 97 06/04/17 11:50 Nasal Cannula 3 Labs Laboratory Tests Test 06/05/17 07:10 White Blood Count 12.2 Red Blood Count 3.51 Hemoglobin 10.2 Hematocrit 31.7 Mean Corpuscular Volume 90.4 Mean Corpuscular Hemoglobin 29.1 Mean Corpuscular Hemoglobin Concent 32.2 Red Cell Distribution Width 13.4 Platelet Count 323 Mean Platelet Volume 7.9 Neutrophils (%) (Auto) 76.2 Lymphocytes (%) (Auto) 18.8 Monocytes (%) (Auto) 4.5 Eosinophils (%) (Auto) 0.3 Basophils (%) (Auto) 0.2 Neutrophils # (Auto) 9.4 Lymphocytes # (Auto) 2.3 Monocytes # (Auto) 0.5 Eosinophils # (Auto) 0.0 Basophils # (Auto) 0.0 CBC Comment DIFF FINAL Differential Comment Blood Urea Nitrogen 4 Creatinine 0.72 Random Glucose 128 Total Protein 6.7 Albumin 3.0 Calcium Level 7.9 Phosphorus Level 2.2 Magnesium Level 2.6 Alkaline Phosphatase 148 Aspartate Amino Transf (AST/SGOT) 74 Alanine Aminotransferase (ALT/SGPT) 109 Total Bilirubin 0.4 Sodium Level 139 Potassium Level 3.5 Chloride Level 107 Carbon Dioxide Level 22.0 Anion Gap 10 Estimat Glomerular Filtration Rate 88 Free Thyroxine 1.10 Thyroid Stimulating Hormone 3rd Gen 0.742 Cardiovascular: Regular Lungs: Clear Abdomen: Other (lap sites c/d/i; mild drainage around umbilicus ) Extremities: No edema A/P Assessment and Plan 46 year old female POD1 lap cait -Pain controlled -Tolerated regular diet -GS clear for DC -Follow up June [address] Daniel Morales to shower---no bathtubs; avoid heavy pushing pulling and lifting Maria Isabel Peck/Spinneret Cleaner FURNACE LINER Jun 05, 2017 11:42
[2017-06-05] MEDS ORDERED: PROPOFOL 200 MG/20 ML AMP IV ONE (13:17)
[2017-06-05] MEDS ORDERED: DEXAMETHASONE SOD PHOS 4 MG/ML VIAL IV ONE (13:17)
[2017-06-05] MEDS ORDERED: ROCURONIUM INJ 50 MG/5 ML SYRINGE IV PUSH ONE (13:17)
[2017-06-05] MEDS ORDERED: ceFAZolin INJ 1,000 MG VIAL IV PUSH ONE (13:17)
[2017-06-05] MEDS ORDERED: NEOSTIGMINE 5 MG/5 ML SYRINGE IV PUSH ONE (13:17)
[2017-06-05] MEDS ORDERED: LIDOCAINE HCL 1% PF 5 ML SYRINGE OTHER ONE (13:17)
[2017-06-05] MEDS ORDERED: GLYCOPYRROLATE 1 MG/5 ML SYRINGE IV PUSH ONE (13:17)
[2017-06-05] MEDS ORDERED: ONDANSETRON HCL 4 MG/2 ML VIAL IV PUSH ONE (13:17)
[2017-06-05] MEDS ORDERED: KETOROLAC TROMETHAMINE 30 MG/ML (IVP) VIAL IV PUSH ONE (13:17)
[2017-06-05] MEDS ORDERED: ALPRAZolam 1 MG TAB PO SCH (14:00)
[2017-06-05 16:08] LABS: HEMOGLOBIN A1C 5.4 % (4.3-6.0)
== END 2017-06-05 13:18 | disposition home or self-care (01) | DRG 419 ==
LOC: PHED 01:40 → PHEDA 05:20 → PH3A 05:51
PROVIDERS: ADMIT Hospitalist; ATTEND Hospitalist
PROC: 0FT44ZZ Resection of Gallbladder, Percutaneous Endoscopic Approach (ICD-10-PCS; principal; 2017-06-04 09:22)
DX: K80.00 Calculus of gallbladder with acute cholecystitis without obstruction (principal); F32.9 Major depressive disorder, single episode, unspecified; E66.9 Obesity, unspecified; F41.9 Anxiety disorder, unspecified; E78.00 Pure hypercholesterolemia, unspecified; F17.210 Nicotine dependence, cigarettes, uncomplicated; D64.9 Anemia, unspecified; G89.29 Other chronic pain; M54.9 Dorsalgia, unspecified; N83.201 Unspecified ovarian cyst, right side; Z68.29 Body mass index [BMI] 29.0-29.9, adult
CPT/HCPCS: 71045; 74177; 76700; 80053; 82550; 83036; 83690; 83735; 83880; 84100; 84439; 84443; 84484; 85025; 88304; 93005; 96374; 96375; J0131; J0690; J1100; J1170; J1885; J2060; J2175; J2250; J2270; J2405; J2543; J2710; J3010; J7030; J7120; Q9967